=== PATIENT | male | born 1945 | race Caucasian/White ===

== ENCOUNTER → 2016-11-15 | Outpatient (CLI) | payer MEDICARE, OTHER ==
--- NOTE | 2016-11-15 13:51 | EKG REPORT ---
SEVERITY:- ABNORMAL ECG - SINUS RHYTHM ATRIAL PREMATURE COMPLEX RIGHT BUNDLE BRANCH BLOCK : Confirmed by: Kevin Betts 15-Nov-2016 13:50:50
[2016-11-15 14:09] LABS: ABSOLUTE BASOPHILS # (AUTO) 0.1 10^3/uL (0.0-0.2); ABSOLUTE EOSINOPHILS # (AUTO) 0.1 10^3/uL (0.0-0.6); ABSOLUTE LYMPHOCYTES (AUTO) 0.9 10^3/uL (0.5-4.7); ABSOLUTE MONOCYTES (AUTO) 0.4 10^3/uL (0.1-1.4); ABSOLUTE NEUT (AUTO) 5.7 10^3/uL (1.7-8.2); BASOPHILS % (AUTO) 0.8 % (0-2); EOSINOPHILS % (AUTO) 1.2 % (0-6); HEMATOCRIT 36.6 % (37.9-51.0); HEMOGLOBIN 12.3 g/dL (13.5-17.0); HGB HCT DIFFERENCE 0.3; LYMPHOCYTES % (AUTO) 12.9 % (13-45); MEAN CORPUSCULAR HEMOGLOBIN 29.6 pg (27.0-33.4); MEAN CORPUSCULAR HGB CONC 33.5 g/dL (32.0-36.0); MEAN CORPUSCULAR VOLUME 88 fl (80-97); MONOCYTES % (AUTO) 5.6 % (3-13); RED BLOOD COUNT 4.15 10^6/uL (4.35-5.55); RED CELL DISTRIBUTION WIDTH 13.9 % (11.5-14.0); SEGMENTED NEUTROPHILS % (AUTO) 79.5 % (42-78); WHITE BLOOD COUNT 7.2 10^3/uL (4.0-10.5)
[2016-11-15 14:16] LABS: APPEARANCE,URINE CLEAR; BILIRUBIN,URINE NEGATIVE (NEGATIVE); GLUCOSE, URINE NEGATIVE (NEGATIVE); KETONES,URINE NEGATIVE (NEGATIVE); LEUKOCYTE ESTERASE,URINE NEGATIVE (NEGATIVE); NITRITE,URINE NEGATIVE (NEGATIVE); PROTEIN,URINE NEGATIVE (NEGATIVE); URINE SPECIFIC GRAVITY 1.014; UROBILINOGEN,URINE NEGATIVE mg/dL (<2.0)
[2016-11-15 14:38] LABS: ANION GAP 10 (5-19); BLOOD UREA NITROGEN 18 mg/dL (7-20); CALCIUM 9.4 mg/dL (8.4-10.2); CARBON DIOXIDE 28 mmol/L (22-30); CHLORIDE 104 mmol/L (98-107); CREATININE RESULT 0.95 mg/dL (0.52-1.25); GLUCOSE 125 mg/dL (75-110); POTASSIUM 5.1 mmol/L (3.6-5.0); SODIUM 141.7 mmol/L (137-145)
--- NOTE | 2016-11-16 10:49 | EKG REPORT ---
SEVERITY:- ABNORMAL ECG - SINUS RHYTHM RIGHT BUNDLE BRANCH BLOCK : Confirmed on behalf of: Kevin Betts 16-Nov-2016 10:48:05
== END ==
LOC: OD 12:30
PROVIDERS: ATTEND Orthopaedic Surgery
DX: Z01.810 Encounter for preprocedural cardiovascular examination (principal); Z01.812 Encounter for preprocedural laboratory examination; Z01.818 Encounter for other preprocedural examination
CPT/HCPCS: 36415; 71020; 80048; 81001; 83036; 85025; 93005; 93010

== ENCOUNTER → 2017-01-02 | Outpatient (CLI) | payer MEDICARE, OTHER ==
[~2017-01-02] MED LIST: REGADENOSON INJ 0.4 MG/5 ML DISP.SYRIN IV ONE
--- NOTE | 2017-01-03 12:01 | RADIOLOGY REPORT ---
STRESS TEST REPORT [id number] ROOM#: DATE OF SERVICE: 01/02/2017 AGE: 71Y ORDER#: [id number] REFERRING MD: LORRAINE OSCAR M.D. INDICATION: For preop cardiac evaluation, right bundle branch block PROCEDURE PERFORMED REST/STRESS SINGLE ISOTOPE CARDIOLITE SPECT IMAGING WITH IV LEXISCAN STRESS AND GATED SPECT IMAGING CLINICAL HISTORY This is a 71-year-old male with no known coronary artery disease but has abnormal EKG showing right bundle branch block and left posterior vesicular block, with coronary risk factors of diabetes, hypercholesterolemia, use of tobacco, currently about to undergo left total knee replacement and needs cardiac clearance. PROCEDURE The patient received IV Lexiscan 0.4 mg infused over ten seconds. The resting heart rate was 61 bpm and increased to 93 bpm at end infusion. The resting BP was 151/67 and increased to 145/60 at end infusion. Patient had symptoms of flushing and some shortness of breath, but no chest pains. Resting 12 lead EKG showed normal sinus rhythm at 61 bpm, bifascicular block. At end infusion, no ST changes were seen. Myocardial perfusion imaging was performed at rest 60 minutes following injection of 12.5 mCi Cardiolite. Ten seconds after the IV Lexiscan injection, the patient was injected with 38.7 mCi Cardiolite and flushed. Gated post stress tomographic imaging was performed 60 minutes after stress. FINDINGS The overall quality of the study is good. The left ventricular cavity is noted to be normal in size on both the rest and stress studies. There is no evidence of abnormal transient ischemic dilatation of the left ventricle. The TID ratio was 0.97 and normal. SPECT images showed no evidence of IV Lexiscan induced reversible ischemia. No fixed perfusion defects. Gated SPECT imaging showed normal motion and contraction of all LV segments. The left ventricular ejection fraction was calculated to be 62%. IMPRESSION: MYOCARDIAL PERFUSION IMAGING IS NORMAL. THERE IS NO IV LEXISCAN INDUCED REVERSIBLE ISCHEMIA IN THE LEFT VENTRICLE. NO FIXED PERFUSION DEFECTS. OVERALL LEFT VENTRICULAR SYSTOLIC FUNCTION WAS NORMAL AT 62% EF WITH NO REGIONAL WALL MOTION ABNORMALITY SEEN. NO PRIOR STUDY FOR COMPARISON. THE PATIENT IS LOW RISK FOR PERIOPERATIVE MYOCARDIAL INFARCTION. INTERPRETING PHYSICIAN: LORRAINE OSCAR M.D. /: SEAMUS TT: 1140 ID: [id number] /: [id number] TD: 0851 JOB: [id number] cc:Marybeth POND > KADE
== END ==
LOC: RAD 06:25
PROVIDERS: ATTEND Internal Medicine Cardiovascular Disease
DX: R94.31 Abnormal electrocardiogram [ECG] [EKG] (principal)
CPT/HCPCS: 93017; 78452; A9500; J2785; Q9969

== ENCOUNTER 2017-03-01 05:19 | Inpatient (IN) | payer MEDICARE, OTHER ==
[2017-02-15 12:08] LABS: HEMOGLOBIN 11.2 g/dL (13.5-17.0); HGB HCT DIFFERENCE 0.6; MEAN CORPUSCULAR HGB CONC 33.9 g/dL (32.0-36.0); MEAN CORPUSCULAR VOLUME 89 fl (80-97); RED BLOOD COUNT 3.73 10^6/uL (4.35-5.55); RED CELL DISTRIBUTION WIDTH 14.6 % (11.5-14.0); WHITE BLOOD COUNT 7.6 10^3/uL (4.0-10.5)
[2017-02-15 12:18] LABS: APPEARANCE,URINE CLEAR; BILIRUBIN,URINE NEGATIVE (NEGATIVE); GLUCOSE, URINE NEGATIVE (NEGATIVE); KETONES,URINE NEGATIVE (NEGATIVE); LEUKOCYTE ESTERASE,URINE NEGATIVE (NEGATIVE); NITRITE,URINE NEGATIVE (NEGATIVE); PROTEIN,URINE NEGATIVE (NEGATIVE); URINE SPECIFIC GRAVITY 1.012; UROBILINOGEN,URINE NEGATIVE mg/dL (<2.0)
--- NOTE | 2017-02-15 12:18 | RADIOLOGY REPORT (SQ) ---
EXAM DESCRIPTION: CHEST PA/LATERAL COMPLETED DATE/TIME: 02/15/2017 12:08 pm REASON FOR STUDY: PRE OP COMPARISON: Two-view chest 11/15/2016 EXAM PARAMETERS: NUMBER OF VIEWS: two views TECHNIQUE: Digital Frontal and Lateral radiographic views of the chest acquired. RADIATION DOSE: NA LIMITATIONS: none FINDINGS: LUNGS AND PLEURA: Patchy airspace disease at the right lung base along the anterior edge r ight middle lobe, worrisome for early or developing pneumonia. Left lung clear. No pleural effusions. No pneumothorax. MEDIASTINUM AND HILAR STRUCTURES: No masses or contour abnormalities. HEART AND VASCULAR STRUCTURES: Heart normal size. No evidence for failure. BONES: No acute findings. HARDWARE: None in the chest. OTHER: No other significant finding. IMPRESSION: Patchy airspace disease in the anterior right lung base worrisome for right middle lobe pneumonia TECHNICAL DOCUMENTATION: JOB ID: [id number] [employer]- All Rights Reserved
[2017-02-15 12:38] LABS: ANION GAP 9 (5-19); BLOOD UREA NITROGEN 17 mg/dL (7-20); CALCIUM 9.3 mg/dL (8.4-10.2); CARBON DIOXIDE 27 mmol/L (22-30); CHLORIDE 103 mmol/L (98-107); CREATININE RESULT 0.87 mg/dL (0.52-1.25); GLUCOSE 178 mg/dL (75-110); POTASSIUM 4.8 mmol/L (3.6-5.0); SODIUM 139.2 mmol/L (137-145)
--- NOTE | 2017-02-15 13:23 | EKG REPORT ---
SEVERITY:- ABNORMAL ECG - SINUS RHYTHM RIGHT BUNDLE BRANCH BLOCK : Confirmed by: Kevin Betts 15-Feb-2017 13:22:41
[~2017-03-01 05:19] MED LIST changes: +CEFAZOLIN 2 GM/D5W RTU 2 GM/50 ML RTUPB IV PRN; +LACTATED RINGERS 1000 ML IV PRN; +LIDOCAINE 0.5% INJ-PF (5 MG/ML) 50 ML SDV SUBCUT PRN; -REGADENOSON INJ 0.4 MG/5 ML DISP.SYRIN IV ONE; +VANCOMYCIN HCL 1,500 MG in DEXTROSE 5%-WATER 250 ML IV PRN
[2017-03-01] MEDS ORDERED: ALBUTEROL SULFATE 0.083% NEB 2.5 MG/3 ML AMPUL NEB ONE (06:13)
[2017-03-01 06:31] LABS: POTASSIUM 4.3 mmol/L (3.6-5.0)
--- NOTE | 2017-03-01 06:47 | RADIOLOGY REPORT (SQ) ---
EXAM DESCRIPTION: CHEST SINGLE VIEW COMPLETED DATE/TIME: 03/01/2017 6:29 am REASON FOR STUDY: PREOP COMPARISON: 02/15/2017. EXAM PARAMETERS: NUMBER OF VIEWS: One view. TECHNIQUE: Single frontal radiographic view of the chest acquired. RADIATION DOSE: NA LIMITATIONS: None. FINDINGS: LUNGS AND PLEURA: Mild hyperinflation. Interval clearing of the right lung base. MEDIASTINUM AND HILAR STRUCTURES: No masses. Contour normal. HEART AND VASCULAR STRUCTURES: Mild enlargement of the cardiac silhouette. BONES: No acute findings. HARDWARE: None in the chest. OTHER: No other significant finding. IMPRESSION: No acute cardiopulmonary findings. TECHNICAL DOCUMENTATION: JOB ID: [id number]
[2017-03-01] MEDS ORDERED: THROMBIN (BOVINE) TOPICAL 20000 UNIT VIAL ONE (06:49)
[2017-03-01] MEDS ORDERED: THROMBIN (BOVINE) 5000 UNIT EPITAXIS KIT ONE (06:50)
[2017-03-01] MEDS ORDERED: BUPIVACAINE INJ/PF LIPOSOME/PF 266 MG/20 ML SDV ONE (06:50)
[2017-03-01] MEDS ORDERED: PROPOFOL INJ 200 MG/20 ML VIAL IV ONE (07:00)
[2017-03-01] MEDS ORDERED: MIDAZOLAM 2 MG/2 ML INJ ONE (07:00)
[2017-03-01] MEDS ORDERED: ACETAMINOPHEN 100 ML IV ONE (07:00)
[2017-03-01] MEDS ORDERED: IBUPROFEN INJ 800 MG/8 ML VIAL IV ONE (07:00)
[2017-03-01] MEDS ORDERED: HYDROMORPHONE HCL INJ/PF 2 MG/ML AMPULE ONE (07:01)
[2017-03-01] MEDS ORDERED: TRANEXAMIC ACID INJ/PF 1,000 MG/10 ML SDV IV ONE (07:35)
[2017-03-01] MEDS ORDERED: FENTANYL CITRATE INJ/PF 100 MCG/2 ML AMPUL ONE ×2 (08:23→11:17)
[2017-03-01] MEDS ORDERED: EPHEDRINE SULFATE INJ 50 MG/1 ML AMPULE ONE (08:23)
[2017-03-01] MEDS ORDERED: FENTANYL CITRATE INJ/PF 100 MCG/2 ML AMPUL IV PRN ×3 (09:34)
[2017-03-01] MEDS ORDERED: ONDANSETRON HCL INJ/PF 4 MG/2 ML SDV IV PRN ×2 (09:34→11:33)
[2017-03-01] MEDS ORDERED: LIDOCAINE 2% INJ-PF (20 MG/ML) 10 ML AMPUL ONE (10:25)
[2017-03-01] MEDS ORDERED: DEXAMETHASONE SOD PHOSPHATE INJ 4 MG/1 ML VIAL ONE (10:25)
[2017-03-01] MEDS ORDERED: METOCLOPRAMIDE HCL INJ/PF 10 MG/2 ML SDV ONE (10:25)
[2017-03-01] MEDS ORDERED: SUCCINYLCHOLINE CHLORIDE INJ 200 MG/10 ML VIAL ONE (10:25)
[2017-03-01] MEDS ORDERED: ONDANSETRON HCL INJ/PF 4 MG/2 ML SDV ONE (10:25)
--- NOTE | 2017-03-01 11:16 | Operative Report ---
Operative Report DATE OF SURGERY: 03/01/17 Operative Report: Left total knee arthroplasty PREOPERATIVE DIAGNOSIS: Left knee osteoarthritis POSTOPERATIVE DIAGNOSIS: Same OPERATION: Left total knee arthroplasty SURGEON: LIBORIO KLINE ANESTHESIA: GA TISSUE REMOVED OR ALTERED: Bone cuts COMPLICATIONS: None ESTIMATED BLOOD LOSS: 10 mL INTRAOPERATIVE FINDINGS: As above PROCEDURE: Patient was brought to the operating room where he was successfully intubated in a supine position. Patient received his preoperative antibiotics and the left lower extremity was prepped and draped in a normal sterile surgical fashion. Timeout was done identifying the left knee as the correct site. extremity had been held and the tourniquet was inflated at 300 mmHg. Leg was placed in the leg acuna and midline incision was done. Medial parapatellar arthrotomy was done to knee. The patella was everted and retracted laterally. After flexing the knee we resected the menisci as well as ACL and PCL. We proceeded to prepare the femur by doing first our distal cut. We checked the extension gap and then turned our attention to completing the femoral cuts using the 4-in-1 block Then we prepared and did an intramedullary guide and did our tibial cut. To do our remaining anterior, posterior, chamfer cuts. We sized it to be about a 6 and pin the epicondylar axis. We placed 6 block and there are cuts. The bone fragments were removed. And the guide was removed. We then proceeded to do our box cut making sure we were lateral enough. We used the osteotome and reciprocating saw to resect the bone. This also was removed and then we used a PCL guide to reflect the femur and proceeded to prepare the tibia. We measured tray to be 6 and we proceeded to prepare the tibia. We removed all excess pieces of spur and bone. We then placed the tibial trial spacer and felt like a 9 space was too tight as we proceeded then to resect another 2 mm off her tibia. We trialed again and was happy so we then proceeded to prepare and open the final components. While the components were being open then the cement was mixed we proceeded to use copious irrigation to clean the surface of the bone. The patella had intact cartilage with no defects of the left the patella alone. The tracking of the patella was perfect. Once the bone was irrigated and dried we proceeded to place a cement on the tibia and on the tibial component. Then placed a component and hammered component down and remove the excess cement. Same procedure was done for the femoral component. We placed a trial spacer to hold in place while of the components and cement cured. Once the cement had hardened we then used osteotome to remove excess cement. Traction of the patella continued to be excellent so we then proceeded to place the final spacer. We used a 9 and then trialed 11 and decided to use an 11 component. This was placed and secured and locked into the trial tibial tray. At this point irrigation was placed using past the renal clorhexidine wash followed with saline wash. We proceeded then to close the arthrotomy and use #1 Vicryl suture. We then used 0 Vicryl to close the subcutaneous tissue and 2-0 Vicryl for the dermis. [place] was used to close the skin. Acticoat was applied followed by 4 x 4 dressing, ABD pad and overwrapped with soft roll and Napoleon bandage. Tourniquet was let down at 106 minutes. Drapes were removed and the patient was extubated and sent to PACU in a stable condition
[2017-03-01] MEDS ORDERED: RINGERS SOLUTION,LACTATED 1,000 ML IV PRN (11:20)
[2017-03-01] MEDS ORDERED: OXYCODONE-ACETAMINOPHEN 5-325 MG TABLET PO PRN (11:30)
[2017-03-01] MEDS ORDERED: MORPHINE SULFATE 10 MG/ML INJ IV PRN (11:32)
--- NOTE | 2017-03-01 11:58 | RADIOLOGY REPORT (SQ) ---
EXAM DESCRIPTION: KNEE LEFT 2 VIEWS COMPLETED DATE/TIME: 03/01/2017 11:26 am REASON FOR STUDY: postop pacu M17.12 UNILATERAL PRIMARY OSTEOARTHRITIS, LEFT KNEE COMPARISON: Left knee MRI 07/23/2015 NUMBER OF VIEWS: Two views TECHNIQUE: Digital radiographic images of the left knee post-procedure. LIMITATIONS: None. FINDINGS: BONES: Diffuse soft tissue gas along the deep tissues left thigh. Knee joint effusion wit h air bubbles. DEVICE: Left total knee replacement with patellar resurfacing. Good alignment at the left knee joint . SOFT TISSUES: No worrisome findings. Expected postoperative soft tissue changes. IMPRESSION: SATISFACTORY POSTOPERATIVE LEFT KNEE. TECHNICAL DOCUMENTATION: JOB ID: [id number] [employer]- All Rights Reserved
[2017-03-01] MEDS ORDERED: ALBUTEROL SULFATE HFA (90 MCG/PUFF) 200 PUFF/8.5 GM MDI IH PRN (13:26)
[2017-03-01] MEDS ORDERED: MOMETASONE FUROATE 17 GM NS SCH (13:30)
[2017-03-01] MEDS ORDERED: TIOTROPIUM BROMIDE DPI 5 CAP/KIT (18 MCG/CAP) IH ONE (15:00)
[2017-03-01] MEDS ORDERED: CITALOPRAM HYDROBROMIDE 20 MG TABLET PO ONE (15:00)
[2017-03-01] MEDS: OXYCODONE-ACETAMINOPHEN 5-325 MG TABLET PO PRN ×2 (15:00→20:11)
[2017-03-01] MEDS: ALLOPURINOL 300 MG TABLET PO SCH (18:05)
[2017-03-01] MEDS: DOCUSATE SODIUM 100 MG CAPSULE PO SCH (18:05)
[2017-03-01] MEDS: ROPINIROLE HCL 1 MG TABLET PO SCH (18:05)
[2017-03-01] MEDS: EZETIMIBE 10 MG TABLET PO SCH (18:06)
[2017-03-01] MEDS: VANCOMYCIN HCL 1,500 MG in DEXTROSE 5%-WATER 250 ML IV SCH (18:06)
[2017-03-01] MEDS ORDERED: DEXTROSE 50%-WATER SYRINGE 12.5 GM/25 ML DOSE IV PRN (20:34)
[2017-03-01] MEDS ORDERED: GLUCAGON,HUMAN RECOMB 1 MG INJ IM PRN (20:34)
[2017-03-01] MEDS ORDERED: INSULIN LISPRO 100 UNIT/ML 3 ML VIAL SUBCUT PRN (20:34)
[2017-03-01] MEDS ORDERED: DEXTROSE 40% GEL 15 GM TUBE X 2 PO PRN (20:34)
[2017-03-01] MEDS ORDERED: DEXTROSE 40% GEL 15 GM TUBE PO PRN (20:34)
[2017-03-01] MEDS ORDERED: DEXTROSE 50%-WATER SYRINGE 25 GM/50 ML DOSE IV PRN (20:34)
[2017-03-01] MEDS: MONTELUKAST SODIUM 10 MG TABLET PO SCH (22:10)
[2017-03-01] MEDS: DONEPEZIL HCL 5 MG TABLET PO SCH (22:10)
[2017-03-01] MEDS: GABAPENTIN 300 MG CAPSULE PO SCH (22:10)
[2017-03-01] MEDS: RIVAROXABAN 10 MG TABLET PO SCH (22:10)
[2017-03-01] MEDS: FLUTICASONE/SALMETEROL DISKUS 250-50 MCG/DOSE IH SCH (22:12)
[2017-03-02] MEDS: ROPINIROLE HCL 1 MG TABLET PO SCH ×4 (00:25→17:15)
[2017-03-02] MEDS: OXYCODONE-ACETAMINOPHEN 5-325 MG TABLET PO PRN ×2 (04:17→21:32)
[2017-03-02] MEDS: VANCOMYCIN HCL 1,500 MG in DEXTROSE 5%-WATER 250 ML IV SCH ×2 (05:58→17:15)
[2017-03-02 06:11] LABS: HEMATOCRIT 28.8 % (37.9-51.0); HEMOGLOBIN 9.9 g/dL (13.5-17.0); HGB HCT DIFFERENCE 0.9; MEAN CORPUSCULAR HEMOGLOBIN 30.4 pg (27.0-33.4); MEAN CORPUSCULAR HGB CONC 34.4 g/dL (32.0-36.0); MEAN CORPUSCULAR VOLUME 88 fl (80-97); RED BLOOD COUNT 3.26 10^6/uL (4.35-5.55); RED CELL DISTRIBUTION WIDTH 15.1 % (11.5-14.0); WHITE BLOOD COUNT 12.8 10^3/uL (4.0-10.5)
[2017-03-02 06:30] LABS: ANION GAP 8 (5-19); BLOOD UREA NITROGEN 21 mg/dL (7-20); CALCIUM 8.6 mg/dL (8.4-10.2); CARBON DIOXIDE 26 mmol/L (22-30); CHLORIDE 101 mmol/L (98-107); CREATININE RESULT 0.93 mg/dL (0.52-1.25); GLUCOSE 233 mg/dL (75-110); SODIUM 135.3 mmol/L (137-145)
[2017-03-02 06:31] LABS: POTASSIUM 4.8 mmol/L (3.6-5.0)
[2017-03-02] MEDS ORDERED: (PENDING PHARMACY ID) (Sitagliptin Phos/Metformin Hcl [Janumet 50-500 Mg Tablet] 1 TAB) PO SCH (08:00)
[2017-03-02] MEDS: GLIMEPIRIDE 1 MG TABLET PO SCH (08:19)
[2017-03-02] MEDS: SITAGLIPTIN PHOSPHATE 50 MG TABLET PO SCH (08:20)
[2017-03-02] MEDS: METFORMIN HCL 500 MG TABLET PO SCH (08:20)
[2017-03-02] MEDS: TIOTROPIUM BROMIDE DPI 5 CAP/KIT (18 MCG/CAP) IH SCH (08:20)
[2017-03-02] MEDS ORDERED: METHOTREXATE SODIUM 2.5 MG TABLET PO SCH (10:00)
[2017-03-02] MEDS: GABAPENTIN 300 MG CAPSULE PO SCH ×2 (10:29→21:32)
[2017-03-02] MEDS: DOCUSATE SODIUM 100 MG CAPSULE PO SCH ×2 (10:29→17:15)
[2017-03-02] MEDS: CITALOPRAM HYDROBROMIDE 20 MG TABLET PO SCH (10:30)
[2017-03-02] MEDS: FLUTICASONE/SALMETEROL DISKUS 250-50 MCG/DOSE IH SCH ×2 (10:30→21:32)
[2017-03-02] MEDS: PREDNISONE 5 MG TABLET PO SCH (10:31)
[2017-03-02] MEDS: ALLOPURINOL 300 MG TABLET PO SCH (17:15)
[2017-03-02] MEDS: EZETIMIBE 10 MG TABLET PO SCH (17:15)
--- NOTE | 2017-03-02 19:04 | PDOC PROGRESS REPORT ---
Subjective Progress Note for:: 03/02/17 Subjective:: Patient ambulated 150 feet today. States the pain is adequately controlled. Patient plan to discharge tomorrow. Physical Exam Vital Signs: Temp Pulse Resp BP Pulse Ox 36.8 C 66 20 132/55 H 99 03/02/17 11:50 03/02/17 11:50 03/02/17 11:50 03/02/17 11:50 03/02/17 11:50 Intake & Output 03/01/17 03/02/17 03/03/17 06:59 06:59 06:59 Intake Total 0 6198 1820 Output Total 4480 700 Balance 0 1718 1120 General appearance: PRESENT: no acute distress Adult Front & Back Image: 1 - Dressing is dry clean and intact. Able to extend to about -10 and flex it to 90. Sensation is intact to light touch with good capillary refill. He does have soft cast. Results Laboratory Results: 03/02/17 05:54 03/02/17 05:54 03/02/17 03/02/17 05:54 05:54 WBC 12.8 H RBC 3.26 L Hgb 9.9 L Hct 28.8 L MCV 88 MCH 30.4 MCHC 34.4 RDW 15.1 H Plt Count 266 Sodium 135.3 L Potassium 4.8 Chloride 101 Carbon Dioxide 26 Anion Gap 8 BUN 21 H Creatinine 0.93 Est GFR ( Amer) > 60 Est GFR (Non-Af Amer) > 60 Glucose 233 H Calcium 8.6 Impressions: Chest X-Ray 03/01/17 00:00 IMPRESSION: No acute cardiopulmonary findings. Knee X-Ray 03/01/17 10:48 IMPRESSION: SATISFACTORY POSTOPERATIVE LEFT KNEE. Status: Image reviewed by me Assessment & Plan - Plan Summary Plan Summary: 72-year-old gentleman who is postop day 1 from left total knee arthroplasty. He is doing very well and will probably be discharged tomorrow with home health and home physical therapy. Patient continued to weight-bear as tolerated. Continue Xarelto. Continue Percocet.
[2017-03-02] MEDS: MONTELUKAST SODIUM 10 MG TABLET PO SCH (21:32)
[2017-03-02] MEDS: RIVAROXABAN 10 MG TABLET PO SCH (21:32)
[2017-03-02] MEDS: DONEPEZIL HCL 5 MG TABLET PO SCH (21:32)
[2017-03-03] MEDS: ROPINIROLE HCL 1 MG TABLET PO SCH ×2 (00:28→05:32)
[2017-03-03 06:24] LABS: HEMATOCRIT 29.1 % (37.9-51.0); HEMOGLOBIN 9.9 g/dL (13.5-17.0); HGB HCT DIFFERENCE 0.6; MEAN CORPUSCULAR HEMOGLOBIN 30.3 pg (27.0-33.4); MEAN CORPUSCULAR HGB CONC 33.9 g/dL (32.0-36.0); MEAN CORPUSCULAR VOLUME 89 fl (80-97); RED BLOOD COUNT 3.26 10^6/uL (4.35-5.55); RED CELL DISTRIBUTION WIDTH 15.2 % (11.5-14.0); WHITE BLOOD COUNT 8.5 10^3/uL (4.0-10.5)
[2017-03-03 06:37] LABS: ANION GAP 9 (5-19); BLOOD UREA NITROGEN 22 mg/dL (7-20); CALCIUM 8.8 mg/dL (8.4-10.2); CARBON DIOXIDE 29 mmol/L (22-30); CHLORIDE 101 mmol/L (98-107); CREATININE RESULT 0.89 mg/dL (0.52-1.25); GLUCOSE 144 mg/dL (75-110); SODIUM 138.5 mmol/L (137-145)
[2017-03-03] MEDS: DOCUSATE SODIUM 100 MG CAPSULE PO SCH (10:14)
[2017-03-03] MEDS: GLIMEPIRIDE 1 MG TABLET PO SCH (10:14)
[2017-03-03] MEDS: CITALOPRAM HYDROBROMIDE 20 MG TABLET PO SCH (10:15)
[2017-03-03] MEDS: METFORMIN HCL 500 MG TABLET PO SCH (10:16)
[2017-03-03] MEDS: PREDNISONE 5 MG TABLET PO SCH (10:16)
[2017-03-03] MEDS: SITAGLIPTIN PHOSPHATE 50 MG TABLET PO SCH (10:16)
[2017-03-03] MEDS: GABAPENTIN 300 MG CAPSULE PO SCH (10:17)
[2017-03-03] MEDS: FLUTICASONE/SALMETEROL DISKUS 250-50 MCG/DOSE IH SCH (10:18)
[2017-03-03] MEDS: TIOTROPIUM BROMIDE DPI 5 CAP/KIT (18 MCG/CAP) IH SCH (10:18)
--- NOTE | 2017-03-03 13:06 | PDOC DISCHARGE SUMMARY ---
General - Admit/Disc Date/PCP Admission Date/Primary Care Provider: 03/01/17 05:19 JENNIFER MCGRATH MD Discharge Date: 03/03/17 - Discharge Diagnosis (1) Total knee replacement status Is this a current diagnosis for this admission?: Yes (2) Primary osteoarthritis of left knee Is this a current diagnosis for this admission?: Yes - Additional Information Resuscitation Status: Full Code Home Medications: Allopurinol [Zyloprim 300 mg Tablet] 300 mg PO DAILY 03/01/17 Cholecalciferol (Vitamin D3) [Vitamin D3 2000 unit Tablet] 2,000 unit PO DAILY 03/01/17 Citalopram Hydrobromide [Celexa 40 mg Tablet] 40 mg PO DAILY 03/01/17 Cyanocobalamin (Vitamin B-12) [Vitamin B-12] 2,000 mcg PO DAILY 03/01/17 Donepezil HCl [Aricept] 10 mg PO DAILY 03/01/17 Ezetimibe [Zetia 10 mg Tablet] 10 mg PO DAILY 03/01/17 Fluticasone Propionate [Flonase Nasal [place] 50 Mcg/[place] 16 gm] 1 spray NASL DAILY 03/01/17 Fluticasone/Salmeterol [Advair 250-50 Diskus 28 dose] 1 inh IH Q12 03/01/17 Folic Acid [Folvite 1 mg Tablet] 1 mg PO DAILY 03/01/17 Gabapentin [Neurontin 300 mg Capsule] 300 mg PO Q12 03/01/17 Glimepiride [Amaryl] 2 mg PO DAILY 03/01/17 Meloxicam [Mobic 7.5 Mg Tablet] 7.5 mg PO BID 03/01/17 Methotrexate Sodium [Methotrexate] 20 mg PO WE@1000 03/01/17 Montelukast Sodium [Singulair 10 mg Tablet] 10 mg PO DAILY 03/01/17 Ropinirole HCl 1 mg PO Q6 03/01/17 Sitagliptin Phos/Metformin HCl [Janumet Xr 100-1,000 mg Tablet] 1 tab PO DAILY 03/01/17 Tiotropium [place] [Spiriva Handihaler 5 Cap/Kit (18 Mcg/Cap)] 1 cap IH DAILY Trazodone HCl [Desyrel 50 mg Tablet] 25 mg PO HSP PRN 03/01/17 History of Present Illness Patient complains of: Left knee pain with activities. Decreased range of motion. Affecting daily activities. History of Present Illness: MERE PEÑA is a 72 year old male who has been a patient of mine for last couple years developed osteoarthritis in the left knee. Conservative measures finally failed and the patient agreed to proceed with left total knee arthroplasty. Patient had the procedure done on 03/01/17. Hospital stay was uneventful. He is neurovascular intact. Medically stable therefore patient was discharged on 03/03/2017. Hospital Course Hospital Course: On 03/01/2017 patient underwent left total knee arthroplasty. No complications and no events. Pain was adequately controlled and patient participate with physical therapy. On postop day 1 who is neurovascular intact and walked 80 feet. On postop day 2 patient had already walked 150 feet. He already has a walker commode at home. He did not complain of shortness of breath paresthesias or increased pain. Dressing was changed today postop day 2 and incision is dry clean and intact. Patient is still neurovascular intact with soft cast. He will be discharged today to home with home health and home PT. I will see him back in 2 weeks in the office for staple removals. Prescription for Percocet was given. Physical Exam Vital Signs: Temp Pulse Resp BP Pulse Ox 36.4 C 87 15 126/49 H 97 03/03/17 12:47 03/03/17 12:47 03/03/17 12:47 03/03/17 12:47 03/03/17 12:47 Intake & Output 03/02/17 03/03/17 03/04/17 06:59 06:59 06:59 Intake Total 6135 2425 Output Total 4100 1500 Balance 1718 925 Weight 83.3 kg General appearance: PRESENT: no acute distress Head exam: PRESENT: atraumatic Eye exam: PRESENT: EOMI. ABSENT: conjunctival injection Respiratory exam: PRESENT: symmetrical, unlabored. ABSENT: accessory muscle use , tachypnea Pulses: PRESENT: normal dorsalis pedis pul Vascular exam: PRESENT: normal capillary refill GI/Abdominal exam: PRESENT: soft. ABSENT: organolmegaly Adult Front & Back Image: 1 - Left knee incision is dry clean and intact with no drainage. Dressing OpSite was applied at discharge. Patient range of motion is about -10 to about 90 of flexion. Neurovascular intact distally with soft cast. Results Laboratory Results: 03/03/17 05:40 03/03/17 05:40 03/03/17 03/03/17 05:40 05:40 WBC 8.5 RBC 3.26 L Hgb 9.9 L Hct 29.1 L MCV 89 MCH 30.3 MCHC 33.9 RDW 15.2 H Plt Count 247 Sodium 138.5 Potassium 5.0 Chloride 101 Carbon Dioxide 29 Anion Gap 9 BUN 22 H Creatinine 0.89 Est GFR ( Amer) > 60 Est GFR (Non-Af Amer) > 60 Glucose 144 H Calcium 8.8 Impressions: Chest X-Ray 03/01/17 00:00 IMPRESSION: No acute cardiopulmonary findings. Knee X-Ray 03/01/17 10:48 IMPRESSION: SATISFACTORY POSTOPERATIVE LEFT KNEE. Status: Image reviewed by me Plan Discharge Plan: 72-year-old gentleman postop day 2 from left total knee arthroplasty being discharged today to home. Prescriptions for Percocet, Xarelto were given. Patient will follow-up in 2 weeks in the office. Also be set up with home health and home PT. Patient artery has a commode and walker at home.
[2017-03-03 13:47] VITALS: BP 142/56
== END 2017-03-03 14:48 | disposition home health service (06) | DRG 470 ==
LOC: INOR 05:19 → 4S 12:40
PROVIDERS: ADMIT Orthopaedic Surgery; ATTEND Orthopaedic Surgery
PROC: 0SRD0J9 Replacement of Left Knee Joint with Synthetic Substitute, Cemented, Open Approach (ICD-10-PCS; principal; 2017-03-01 07:30)
DX: M17.12 Unilateral primary osteoarthritis, left knee (principal); E11.40 Type 2 diabetes mellitus with diabetic neuropathy, unspecified; J44.9 Chronic obstructive pulmonary disease, unspecified; Z96.649 Presence of unspecified artificial hip joint; J45.909 Unspecified asthma, uncomplicated; F41.9 Anxiety disorder, unspecified; F32.9 Major depressive disorder, single episode, unspecified; Z79.84 Long term (current) use of oral hypoglycemic drugs; Z88.0 Allergy status to penicillin; Z88.8 Allergy status to other drugs, medicaments and biological substances
CPT/HCPCS: 01402; 36415; 71010; 71020; 80048; 81001; 82947; 82962; 83036; 84132; 85027; 86850; 86900; 86901; 88304; 88311; 93005; 93010; 94640; C9290; G8978-GP; G8979-GP; J0131; J0330; J1100; J1170; J1741; J1815; J2250; J2270; J2405; J2704; J2765; J3010; J3370; J3490; J7060; J7512

== ENCOUNTER → 2017-04-02 | Outpatient (CLI) | payer MEDICARE, OTHER ==
--- NOTE | 2017-04-02 17:14 | RADIOLOGY REPORT (SQ) ---
EXAM DESCRIPTION: CT CHEST WITHOUT COMPLETED DATE/TIME: 04/02/2017 12:42 pm REASON FOR STUDY: SOLITARY PULMONARY NODULE (R91.1) R91.1 SOLITARY PULMONARY NODULE COMPARISON: Chest radiograph TECHNIQUE: CT scan performed of the chest without intravenous contrast. Images reviewed with lung, soft tissue and bone windows. Reconstructed coronal and sagittal MPR images reviewed. All images st ored on PACS. All CT scanners at this facility use dose modulation, iterative reconstruction, and/or weight based d osing when appropriate to reduce radiation dose to as low as reasonably achievable (ALARA). [facility]: Dose Right [facility]: CareDose [facility]: Dose Right [facility]: Teradose 4D [facility]: Activity Rocket RADIATION DOSE: Up-to-date CT equipment and radiation dose reduction techniques were employed. CTDIv ol: 9.2 mGy. DLP: 376 mGy-cm. mGy. LIMITATIONS: No technical limitations. FINDINGS: LUNGS AND PLEURA: No discrete pulmonary nodules. Scattered vague opacities. No effusion. HILAR AND MEDIASTINAL STRUCTURES: No identified masses or abnormal nodes. No obvious aneurysm. HEART AND VASCULAR STRUCTURES: No aneurysm. No pericardial effusion. UPPER ABDOMEN: No significant findings. Limited exam. THYROID AND OTHER SOFT TISSUES: No masses. No adenopathy. BONES: No significant finding. HARDWARE: None in the chest. OTHER: No other significant findings. IMPRESSION: NO SIGNIFICANT FINDING ON NON-CONTRASTED CHEST CT. No discrete pulmonary nodules. TECHNICAL DOCUMENTATION: JOB ID: [id number] Quality ID # [id number]: Final reports with documentation of one or more dose reduction techniques (e.g., Au tomated exposure control, adjustment of the mA and/or kV according to patient size, use of iterative reconstruction technique) 2010 [employer]- All Rights Reserved
== END ==
LOC: RAD 12:25
PROVIDERS: ATTEND Internal Medicine Critical Care Medicine
DX: R91.1 Solitary pulmonary nodule (principal)
CPT/HCPCS: 71250

== ENCOUNTER → 2017-05-15 | Outpatient (CLI) | payer MEDICARE, OTHER ==
[2017-05-15 10:13] LABS: ANION GAP 10 (5-19); BLOOD UREA NITROGEN 15 mg/dL (7-20); CALCIUM 9.2 mg/dL (8.4-10.2); CARBON DIOXIDE 28 mmol/L (22-30); CHLORIDE 105 mmol/L (98-107); CREATININE RESULT 1.08 mg/dL (0.52-1.25); GLUCOSE 142 mg/dL (75-110); POTASSIUM 5.5 mmol/L (3.6-5.0); SODIUM 142.9 mmol/L (137-145)
== END ==
LOC: OD 08:12
PROVIDERS: ATTEND Internal Medicine Cardiovascular Disease
DX: I34.9 Nonrheumatic mitral valve disorder, unspecified (principal); E11.9 Type 2 diabetes mellitus without complications; Z79.899 Other long term (current) drug therapy
CPT/HCPCS: 36415; 80048

== ENCOUNTER 2017-05-16 07:08 | Day surgery (SDC) | payer MEDICARE, OTHER ==
[2017-05-16] MEDS ORDERED: GLYCOPYRROLATE INJ 0.4 MG/2 ML VIAL ONE (07:32)
[2017-05-16] MEDS ORDERED: ONDANSETRON HCL INJ/PF 4 MG/2 ML SDV ONE (07:32)
[2017-05-16] MEDS ORDERED: LIDOCAINE 2% JELLY 30 ML TUBE ONE (07:32)
[2017-05-16] MEDS ORDERED: FENTANYL CITRATE INJ/PF 100 MCG/2 ML AMPUL ONE ×2 (07:33)
[2017-05-16] MEDS ORDERED: FLUMAZENIL INJ 0.5 MG/5 ML VIAL ONE (07:33)
[2017-05-16] MEDS ORDERED: NALOXONE HCL INJ/PF 0.4 MG/1 ML SDV ONE (07:33)
[2017-05-16] MEDS ORDERED: GLUCAGON,HUMAN RECOMB 1 MG INJ ONE (07:34)
[2017-05-16] MEDS ORDERED: EPINEPHRINE INJ 1 MG/10 ML DISP.SYRIN ONE (07:34)
[2017-05-16] MEDS: MIDAZOLAM 2 MG/2 ML INJ ONE ×2 (08:04→08:08)
[2017-05-16 09:51] VITALS: BP 125/60
--- NOTE | 2017-05-16 12:00 | OPERATIVE REPORT E ---
Operative Report NAME: MERE PEÑA : 1945 AGE: 72Y DATE OF SURGERY: 05/16/2017 ROOM: PREOPERATIVE DIAGNOSES: 1. Colon screening. 2. History of polyps. 3. Blood in the stool. POSTOPERATIVE DIAGNOSES: 1. No polyps. 2. No bleeding. 3. External hemorrhoids, mild. 4. Sigmoid descending colon diverticulosis. No polyps were seen. Moderate amount of solid stool because of multiplicity of diverticulosis. The prep was adequate, but not optimal. Recommendation followup colonoscopy 2 years. PROCEDURE: Colonoscopy. SURGEON: MIRANDA TENA M.D. TISSUE REMOVED OR ALTERED: None. ANESTHESIA: Versed 3, fentanyl 100. DESCRIPTION OF PROCEDURE: Rectal exam: External hemorrhoids. Sigmoid descending colon diverticulosis. Transverse colon normal. Ascending colon normal. Cecum normal. Moderate amount of solid stool in the cecum. Scope withdrawn from cecum, ascending, transverse, descending, sigmoid all the way to the rectum. CONCLUSION: External hemorrhoids. Sigmoid descending colon diverticulosis. No polyps. PLAN: Continue all medication. Consider followup colonoscopy 2 years. DICTATING PHYSICIAN: MIRANDA TENA M.D. [id number] PHY#: [id number] ID: [id number] JOB#: [id number] ACCT: [id number] cc:[facility] MRIANDA DOS SANTOS M.D. >
--- NOTE | 2017-05-16 12:02 | DISCHARGE SUMMARY E ---
Discharge Summary NAME: MERE PEÑA : 1945 AGE: 72Y ADMITTED: 05/16/2017 DISCHARGED: 05/16/2017 PROCEDURE: Colonoscopy. FINAL DIAGNOSES: 1. Sigmoid descending colon diverticulosis. 2. External hemorrhoids. HISTORY: A 72-year-old male presented with history of polyps, blood in the stool, diverticulosis. Underwent colonoscopy today. It shows no bleeding, external hemorrhoids, and sigmoid descending colon diverticulosis. PLAN: Resume all meds. Consider followup colonoscopy 2 years. DICTATING PHYSICIAN: MIRANDA TENA M.D. [id number] PHY#: [id number] ID: [id number] JOB#: [id number] ACCT: [id number] cc:[facility] MIRANDA DOS SANTOS M.D. >
== END 2017-05-16 09:30 | disposition home or self-care (01) ==
LOC: END 07:08
PROVIDERS: ATTEND Specialist
PROC: 0DJD8ZZ Inspection of Lower Intestinal Tract, Via Natural or Artificial Opening Endoscopic (ICD-10-PCS; principal; 2017-05-16 08:00)
DX: K92.1 Melena (principal); K57.30 Diverticulosis of large intestine without perforation or abscess without bleeding; K64.4 Residual hemorrhoidal skin tags
CPT/HCPCS: 45378; 82962; J2250; J3010; J1610; J2405; J0171; J2310; J3490

== ENCOUNTER → 2017-06-05 | Outpatient (CLI) | payer MEDICARE, OTHER ==
[2017-06-05 12:22] LABS: ANION GAP 11 (5-19); BLOOD UREA NITROGEN 18 mg/dL (7-20); CALCIUM 9.7 mg/dL (8.4-10.2); CARBON DIOXIDE 27 mmol/L (22-30); CHLORIDE 103 mmol/L (98-107); CREATININE RESULT 1.02 mg/dL (0.52-1.25); GLUCOSE 120 mg/dL (75-110); POTASSIUM 4.9 mmol/L (3.6-5.0); SODIUM 141.1 mmol/L (137-145)
== END ==
LOC: OD 11:32
PROVIDERS: ATTEND Internal Medicine Cardiovascular Disease
DX: E87.5 Hyperkalemia (principal); Z79.899 Other long term (current) drug therapy
CPT/HCPCS: 36415; 80048

== ENCOUNTER → 2017-06-25 | Outpatient (CLI) | payer MEDICARE, OTHER ==
[2017-06-25 09:17] LABS: ANION GAP 10 (5-19); BLOOD UREA NITROGEN 17 mg/dL (7-20); CALCIUM 9.9 mg/dL (8.4-10.2); CARBON DIOXIDE 27 mmol/L (22-30); CHLORIDE 103 mmol/L (98-107); CREATININE RESULT 0.98 mg/dL (0.52-1.25); GLUCOSE 162 mg/dL (75-110); POTASSIUM 5.3 mmol/L (3.6-5.0); SODIUM 139.9 mmol/L (137-145)
== END ==
LOC: OD 07:55
PROVIDERS: ATTEND Internal Medicine Cardiovascular Disease
DX: E87.5 Hyperkalemia (principal)
CPT/HCPCS: 36415; 80048

== ENCOUNTER → 2017-07-20 | Outpatient (CLI) | payer MEDICARE, OTHER ==
--- NOTE | 2017-07-20 13:59 | RADIOLOGY REPORT (SQ) ---
EXAM DESCRIPTION: L SPINE WHOLE COMPLETED DATE/TIME: 07/20/2017 11:03 am REASON FOR STUDY: SPINAL STENOSIS, LUMBAR REGION WITH NEUROGENIC CLAUDICATION (M48.062) M48.062 SPI NAL STENOSIS, LUMBAR REGION WITH NEUROGENIC SHAHANA COMPARISON: None. NUMBER OF VIEWS: Five views including obliques. TECHNIQUE: AP, lateral, oblique, and sacral radiographic images acquired of the lumbar spine. LIMITATIONS: None. FINDINGS: MINERALIZATION: Normal. SEGMENTATION: Normal. No transitional anatomy. ALIGNMENT: Grade 1 spondylolisthesis L3-4. VERTEBRAE: Maintained height. No fracture or worrisome bone lesion. DISCS: Multilevel disc space narrowing with osteophytes. POSTERIOR ELEMENTS: Pedicles and facets are intact. No pars defect or posterior arch defects. Facet arthropathy is present. HARDWARE: None in the spine. PARASPINAL SOFT TISSUES: Normal. PELVIS: Intact as visualized. No fractures or worrisome bone lesions. SI joints intact. OTHER: No other significant finding. IMPRESSION: Spondylosis. Spondylolisthesis L3-4. TECHNICAL DOCUMENTATION: JOB ID: [id number]- All Rights Reserved
== END ==
LOC: RAD 10:36
PROVIDERS: ATTEND Physician Assistant
DX: M48.062 Spinal stenosis, lumbar region with neurogenic claudication (principal); M47.896 Other spondylosis, lumbar region
CPT/HCPCS: 72110

== ENCOUNTER → 2017-07-25 | Outpatient (CLI) | payer MEDICARE, OTHER ==
--- NOTE | 2017-07-25 08:22 | RADIOLOGY REPORT (SQ) ---
EXAM DESCRIPTION: MRI LUMBAR SPINE WITHOUT COMPLETED DATE/TIME: 07/25/2017 7:43 am REASON FOR STUDY: SPINAL STENOSIS, LUMBAR REGION WITH NEUROGENIC CLAUDICATION(M48.062) M48.062 SPIN AL STENOSIS, LUMBAR REGION WITH NEUROGENIC SHAHANA M51.36 OTHER INTERVERTEBRAL DISC DEGENERATION, LUMB AR REGION M43.06 SPONDYLOLYSIS, LUMBAR REGION COMPARISON: None. TECHNIQUE: Sagittal and Axial imaging includes T1, T2, STIR and gradient echo sequences. Coronal T2/ HASTE imaging. LIMITATIONS: None. FINDINGS: VISUALIZED UPPER ABDOMEN: Limited evaluation. No acute or suspicious findings suggested. SEGMENTATION: No transitional anatomy. The lowest well-developed disc space is labeled L5-S1. ALIGNMENT: Minimal grade 1 anterolisthesis of L3 over L4. Mild anterolisthesis of L4 over L5. VERTEBRAE: Intact. BONE MARROW: Normal. No marrow replacement or reactive changes. DISC SIGNAL: Diffuse decreased T2 weighted intervertebral disc signal. Disc space loss of height at L4-5 POSTERIOR ELEMENTS: Generally intact. No pars defect evident. HARDWARE: None in the spine. CORD AND CONUS: Normal in size and signal intensity. Conus at the L1-2 level. SOFT TISSUES: No aortic aneurysm seen. No bulky retroperitoneal adenopathy or mass. No paraspinal mas s or fluid. T11-12: Mild bilateral facet hypertrophy. No central or foraminal stenosis. T12-L1: Unremarkable L1-L2: Moderate bilateral facet hypertrophy. No central or foraminal encroachment L2-L3: Borderline central canal narrowing results from broad diffuse posterior disc bulge and moderat e bilateral facet and ligament hypertrophy. Minimal bilateral for inferior foraminal narrowing is pr esent without exiting L2 nerve root impingement L3-L4: High-grade central canal stenosis results from broad diffuse posterior disc bulge and very bul ky bilateral facet and ligament hypertrophy. Effacement of the CSF around the lumbar nerve roots bes t shown on axial T2 image 19. There is moderate bilateral foraminal narrowing without exiting L3 ner ve root impingement. L4-L5: High-grade central canal stenosis results from broad diffuse posterior disc bulge and bony spu rring and massive bilateral facet and ligament hypertrophy. Best shown on axial T2 image 25, with ef facement of the CSF around the lumbar nerve roots. Mild right, moderate left foraminal narrowing wit hout definite exiting L4 nerve root impingement. L5-S1: Mild posterior disc bulge, mild facet and ligament hypertrophy. No central or foraminal steno sis. SACRUM: Visualized upper sacrum intact. OTHER: No other significant findings. IMPRESSION: High-grade central canal stenosis at L3-4 and L4-5 TECHNICAL DOCUMENTATION: JOB ID: [id number] [employer]- All Rights Reserved
== END ==
LOC: RAD 06:59
PROVIDERS: ATTEND Physician Assistant
DX: M48.062 Spinal stenosis, lumbar region with neurogenic claudication (principal); M51.36 Other intervertebral disc degeneration, lumbar region; M43.06 Spondylolysis, lumbar region
CPT/HCPCS: 72148

== ENCOUNTER → 2017-08-08 | Outpatient (CLI) | payer MEDICARE, OTHER ==
[2017-08-08 09:28] LABS: ANION GAP 7 (5-19); BLOOD UREA NITROGEN 16 mg/dL (7-20); CALCIUM 9.4 mg/dL (8.4-10.2); CARBON DIOXIDE 29 mmol/L (22-30); CHLORIDE 106 mmol/L (98-107); GLUCOSE 108 mg/dL (75-110); POTASSIUM 4.7 mmol/L (3.6-5.0); SODIUM 142.3 mmol/L (137-145)
== END ==
LOC: OD 08:21
PROVIDERS: ATTEND Internal Medicine Cardiovascular Disease
DX: E87.5 Hyperkalemia (principal)
CPT/HCPCS: 36415; 80048

== ENCOUNTER 2018-01-24 07:03 | Day surgery (SDC) | payer MEDICARE, OTHER ==
--- NOTE | 2018-01-21 09:54 | RADIOLOGY REPORT (SQ) ---
EXAM DESCRIPTION: CHEST PA/LATERAL COMPLETED DATE/TIME: 01/21/2018 9:43 am REASON FOR STUDY: PRE-OP COMPARISON: CT chest 04/02/2017 Chest films 03/01/2017, 02/15/2017, 11/15/2016 EXAM PARAMETERS: NUMBER OF VIEWS: two views TECHNIQUE: Digital Frontal and Lateral radiographic views of the chest acquired. RADIATION DOSE: NA LIMITATIONS: none FINDINGS: LUNGS AND PLEURA: No opacities, masses or pneumothorax. No pleural effusion. MEDIASTINUM AND HILAR STRUCTURES: No masses or contour abnormalities. HEART AND VASCULAR STRUCTURES: Heart normal size. No evidence for failure. BONES: No acute findings. HARDWARE: None in the chest. OTHER: No other significant finding. IMPRESSION: NO SIGNIFICANT RADIOGRAPHIC FINDING IN THE CHEST. TECHNICAL DOCUMENTATION: JOB ID: [id number] [employer]- All Rights Reserved Reading location - IP/workstation name: [email or web address]
[2018-01-21 10:41] LABS: APPEARANCE,URINE CLEAR; BILIRUBIN,URINE NEGATIVE (NEGATIVE); COLOR,URINE YELLOW; GLUCOSE, URINE 150 mg/dL (NEGATIVE); KETONES,URINE NEGATIVE (NEGATIVE); LEUKOCYTE ESTERASE,URINE NEGATIVE (NEGATIVE); NITRITE,URINE NEGATIVE (NEGATIVE); PROTEIN,URINE NEGATIVE (NEGATIVE); UROBILINOGEN,URINE NEGATIVE mg/dL (<2.0)
[2018-01-21 11:47] LABS: HEMATOCRIT 35.1 % (37.9-51.0); HEMOGLOBIN 11.8 g/dL (13.5-17.0); MEAN CORPUSCULAR HEMOGLOBIN 29.9 pg (27.0-33.4); MEAN CORPUSCULAR HGB CONC 33.6 g/dL (32.0-36.0); MEAN CORPUSCULAR VOLUME 89 fl (80-97); PLATELET COUNT 307 10^3/uL (150-450); RED BLOOD COUNT 3.95 10^6/uL (4.35-5.55); RED CELL DISTRIBUTION WIDTH 15.2 % (11.5-14.0); WHITE BLOOD COUNT 6.5 10^3/uL (4.0-10.5)
[2018-01-21 12:13] LABS: ANION GAP 12 (5-19); BLOOD UREA NITROGEN 15 mg/dL (7-20); CALCIUM 9.1 mg/dL (8.4-10.2); CARBON DIOXIDE 28 mmol/L (22-30); CHLORIDE 103 mmol/L (98-107); GLUCOSE 155 mg/dL (75-110); POTASSIUM 4.5 mmol/L (3.6-5.0)
--- NOTE | 2018-01-21 19:24 | EKG REPORT ---
SEVERITY:- ABNORMAL ECG - SINUS RHYTHM RIGHT BUNDLE BRANCH BLOCK : Confirmed by: Kevin Betts 21-Jan-2018 19:22:51
[~2018-01-24 07:03] MED LIST changes: +ALBUTEROL SULFATE 0.083% NEB 2.5 MG/3 ML AMPUL NEB PRN; -CEFAZOLIN 2 GM/D5W RTU 2 GM/50 ML RTUPB IV PRN; +CLINDAMYCIN 600 MG/D5W RTU 600 MG/50 ML RTUPB IV PRN; -VANCOMYCIN HCL 1,500 MG in DEXTROSE 5%-WATER 250 ML IV PRN
[2018-01-24] MEDS ORDERED: BUPIVACAINE HCL 0.5 % INJ/PF 30 ML SDV ONE (07:13)
[2018-01-24] MEDS ORDERED: ALBUTEROL SULFATE 0.083% NEB 2.5 MG/3 ML AMPUL NEB ONE (07:43)
[2018-01-24] MEDS ORDERED: MIDAZOLAM 2 MG/2 ML INJ ONE (08:56)
[2018-01-24] MEDS ORDERED: LIDOCAINE 2% INJ-PF (20 MG/ML) 10 ML AMPUL ONE (08:56)
[2018-01-24] MEDS ORDERED: DEXAMETHASONE SOD PHOSPHATE INJ 4 MG/1 ML VIAL ONE (08:56)
[2018-01-24] MEDS ORDERED: FENTANYL CITRATE INJ/PF 250 MCG/5 ML AMPULE ONE (08:56)
[2018-01-24] MEDS ORDERED: ONDANSETRON HCL INJ/PF 4 MG/2 ML SDV ONE (08:57)
[2018-01-24] MEDS ORDERED: ACETAMINOPHEN 1,000 MG/100 ML RTUPB IV ONE (08:57)
[2018-01-24] MEDS ORDERED: PROPOFOL INJ 200 MG/20 ML VIAL IV ONE (08:57)
[2018-01-24] MEDS ORDERED: EPHEDRINE SULFATE INJ 50 MG/1 ML AMPULE ONE (09:26)
[2018-01-24] MEDS ORDERED: OXYCODONE-ACETAMINOPHEN 5-325 MG TABLET PO PRN ×4 (09:56→10:31)
[2018-01-24] MEDS ORDERED: MORPHINE SULFATE 10 MG/ML INJ IV PRN (09:56)
[2018-01-24] MEDS ORDERED: FENTANYL CITRATE INJ/PF 100 MCG/2 ML AMPUL IV PRN ×3 (09:56)
[2018-01-24] MEDS ORDERED: ONDANSETRON HCL INJ/PF 4 MG/2 ML SDV IV PRN (09:56)
[2018-01-24] MEDS ORDERED: MEPERIDINE HCL/PF INJ 25 MG/1 ML DISP.SYRIN IV PRN (09:56)
[2018-01-24] MEDS ORDERED: DIPHENHYDRAMINE HCL 50 MG/ML VIAL IV PRN (09:56)
[2018-01-24] MEDS ORDERED: PROMETHAZINE HCL INJ 25 MG/1 ML VIAL IV PRN ×2 (09:56)
--- NOTE | 2018-01-24 10:24 | Operative Report ---
Operative Report DATE OF SURGERY: 01/24/18 PREOPERATIVE DIAGNOSIS: Right knee medial meniscus tear and mild osteoarthritis POSTOPERATIVE DIAGNOSIS: Same OPERATION: Right knee arthroscopy with partial medial meniscectomy and chondroplasty of all 3 compartments SURGEON: LIBORIO KLINE ANESTHESIA: GA TISSUE REMOVED OR ALTERED: Meniscal shavings COMPLICATIONS: None ESTIMATED BLOOD LOSS: Less than 10 mL INTRAOPERATIVE FINDINGS: As above PROCEDURE: Patient was brought to the operating room and successfully induced and intubated in a the supine position. Once the tube was secured the right lower extremity thigh tourniquet was applied and the left lower extremity was prepped and draped in a normal surgical fashion. Timeout was done identifying the left knee has a correct site. The extremity was held elevated for a couple minutes and then tourniquet was inflated at 300 mmHg 0.5% of Marcaine was injected into the anticipated portal sites. 11 blade was used to establish the anterolateral portal. Scope was introduced and the capsule was distended with sterile saline solution. Under direct visualization the anteromedial portal sites was established first by applying a spinal needle and then established with the 11 blade. Probe was introduced and a diagnostic scope was done. I distended the capsule with sterile saline solution and visualize the patellofemoral compartment which had grade 2 changes on the patella and grade 2 and 3 changes in the trochlear groove. I then bent the knee in 90 and placed valgus stress and expose the medial compartment. Patient had degenerative tearing of the mid body and posterior horn. I proceeded to then use meniscal biters and 4.0 mm shaver to do resection of two thirds of the meniscus. I also then proceeded to use a shaver to do chondroplasty medial femoral condyle had grade 3 changes diffusely and grade 2 and a focal grade 4 on the medial tibial plateau and grade 2 and 3 changes of the rest of the tibial plateau. I then looked at the notch and yellow showing to be intact. I placed the leg in a [id number] exposing the lateral compartment that showed a intact lateral meniscus and some grade 2 changes of the lateral femoral condyle which I then also proceeded to do chondroplasty with my shaver. I returned to the patellofemoral compartment and completed my chondroplasty of the patella and trochlear groove to complete chondroplasty of all 3 compartments. Before and after pictures were taken of the meniscus tear and resection. Fluid was removed from the knee and the 2 portal sites were closed with 3-0 nylon. I applied Xeroform 4 x 4 dressing and wrapped it with a soft roll followed by an Napoleon bandage. Tourniquet was let down at 30 minutes and the drapes were removed. Patient was then extubated and sent to PACU in stable condition
--- NOTE | 2018-01-24 10:31 | Discharge Summary ---
Discharge Summary (SDC) - Discharge Final Diagnosis: Right knee arthroscopic partial medial meniscectomy and chondroplasty Date of Surgery: 01/24/18 Discharge Date: 01/24/18 Condition: Good Treatment or Instructions: Patient instructed to follow up in 10-14 days. Patient instructed to keep dressing dry clean and intact for 3 days and then allowed to remove. At that point patient can shower and apply Band-Aids as needed. Patient can weight-bear as tolerated and do range of motion exercises as tolerated. Crutches for support and safety. Can wean crutches once stable on his feet. Patient instructed to call the office if patient develops fevers chills redness and drainage from the surgical sites. Prescriptions: Oxycodone HCl/Acetaminophen [Percocet 5-325 mg Tablet] 1 - 2 tab PO ASDIR PRN # 25 tablet PRN Reason: Referrals: JENNIFER MCGRATH MD [Primary Care Provider] - Discharge Diet: As Tolerated Respiratory Treatments at Home: Deep Breathing/Coughing Discharge Activity: No Driving - While taking narcotics, No Lifting/Push/Pulling Home Care Assistance: None Needed Adaptive Devices on Discharge: Axillary Crutches Report the Following to Your Physician Immediately: Shortness of Breath, Vomiting, Increase in Pain, Fever over 101 Degrees, Unusual Bleeding, Redness, Swelling, Warmth, Increased Soreness, Drainage-Yellow, Drainage-Lyn, Drainage- Green, Drainage-Foul Smelling
[2018-01-24 11:50] VITALS: BP 143/65
[2018-01-24] MEDS ORDERED: SUCCINYLCHOLINE CHLORIDE INJ 200 MG/10 ML VIAL ONE (13:23)
== END 2018-01-24 12:00 | disposition home or self-care (01) ==
LOC: OROUT 07:03
PROVIDERS: ATTEND Orthopaedic Surgery
DX: S83.221A Peripheral tear of medial meniscus, current injury, right knee, initial encounter (principal); X58.XXXA Exposure to other specified factors, initial encounter; E11.9 Type 2 diabetes mellitus without complications; J44.9 Chronic obstructive pulmonary disease, unspecified; M17.11 Unilateral primary osteoarthritis, right knee; G62.9 Polyneuropathy, unspecified; I10 Essential (primary) hypertension; M19.90 Unspecified osteoarthritis, unspecified site; Z88.0 Allergy status to penicillin; Z88.8 Allergy status to other drugs, medicaments and biological substances; Z79.82 Long term (current) use of aspirin; Z79.51 Long term (current) use of inhaled steroids; Z79.899 Other long term (current) drug therapy; Z79.84 Long term (current) use of oral hypoglycemic drugs; Z87.891 Personal history of nicotine dependence; Z88.1 Allergy status to other antibiotic agents; Z85.46 Personal history of malignant neoplasm of prostate; Z01.818 Encounter for other preprocedural examination
CPT/HCPCS: 93005; 36415 ×2; 82962; 84132; 85027; 80048; 81001; 83036; 71046; 93010; 94640; 29881; J2250; J3490 ×2; J1100; J3010; J0330; J2405; J2704; A9270; J0131; 1400

== ENCOUNTER → 2018-05-28 | Outpatient (CLI) | payer MEDICARE, OTHER ==
--- NOTE | 2018-05-28 16:59 | RADIOLOGY REPORT (SQ) ---
EXAM DESCRIPTION: SMALL BOWEL SERIES COMPLETED DATE/TIME: 05/28/2018 10:28 am REASON FOR STUDY: ANEMIA (D64.9) D64.9 ANEMIA, UNSPECIFIED COMPARISON: None. FLUOROSCOPY TIME: 8 seconds 5 fluoroscopic images, 7 KUB images saved to PACS. LIMITATIONS: None. PROCEDURE: Initial district scout executive image of abdomen acquired, followed by administration of oral contrast. Se rial radiographic images acquired. Fluoroscopic images recorded of the terminal ileum and other prince cated areas. All images stored on PACS. 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 No abnormal calcifications. Old L4 laminectomy and right hip replacement. STOMACH: Gastroesophageal reflux throughout the study. Normal distention without gross mucosal abnor mality. DUODENUM: Normal mucosal pattern with adequate distention. No displacement or obstruction. JEJUNUM: Normal mucosal pattern. No dilatation, segmentation, strictures or masses. ILEUM: Normal mucosal pattern. No dilatation, segmentation, strictures or masses. TERMINAL ILEUM AND ILEO-CECAL VALVE: Normal mucosal pattern without "cobble-stoning" or stricture. N ormal compression. PROXIMAL COLON: Incompletely imaged. No abnormality. OTHER: No other significant finding. IMPRESSION: NORMAL SMALL BOWEL EXAM. COMMENT: Quality ID [id number]: Final reports for procedures using fluoroscopy that document radiation exp osure indices, or exposure time and number of fluorographic images (if radiation exposure indices are not available) TECHNICAL DOCUMENTATION: JOB ID: [id number] [employer]- All Rights Reserved Reading location - IP/workstation name: [email or web address]
== END ==
LOC: RAD 08:33
PROVIDERS: ATTEND Internal Medicine Gastroenterology
DX: D64.9 Anemia, unspecified (principal)
CPT/HCPCS: 74250

== ENCOUNTER → 2018-06-19 | Outpatient (CLI) | payer MEDICARE ==
--- NOTE | 2018-06-21 08:55 | XCELERA REPORT ---
[address] [address] Lower Extremity Arterial Evaluation Name: MERE PEÑA Age: 73 yrs Gender: Male : 1945 Patient Status: Outpatient Patient Location: Study Date: 06/19/2018 11:13 AM Procedure: A color flow and duplex scan of the lower extremity arteries was performed bilaterally with velocity and waveform anaylsis. 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 Except for short segment of 2 x velocity in the mid Femoral. Ankle Brachial index 1.25. PPG's Monophasic mildly dampened waveforms. Left Side Arterial Evaluation Normal velocity and triphasic waveforms noted from the Common Femoral artery to the Posterior Tibial . Biphasic with reduced velocity in the Anterior and Dorsalis Pedis arteries. Flow also retrograde in the Dorsalis Pedis. Ankle Brachial index 1.33 in the Dorsalis Pedis. Non compressible Posterior tibial. PPG's Monophasic dampened waveforms. Interpretation Summary Unusually complex findings, somewhat discordant. Normal on the right, except for suggestion of short segment high grade stenosis in the Femoral artery and abnormal PPG's. Normal CATALINA's. Mildly abnormal hemodynamic changes on the left. Abnormal retrograde flow in the Dorsalis Pedis and Arteriosclerosis in the Postero Tibial, normal CATALINA. Abnormal PPG's. : FAWN QUEEN > Shaun Gross
== END ==
LOC: SP 10:41
PROVIDERS: ATTEND Podiatrist Foot Surgery
DX: I73.9 Peripheral vascular disease, unspecified (principal); E11.59 Type 2 diabetes mellitus with other circulatory complications
CPT/HCPCS: 93922; 93925

== ENCOUNTER → 2018-07-26 | Outpatient (CLI) | payer MEDICARE, OTHER ==
[2018-07-26 07:45] LABS: ALANINE AMINOTRANSFERASE 27 U/L (21-72); ALBUMIN 4.1 g/dL (3.5-5.0); ALKALINE PHOSPHATASE 132 U/L (38-126); ANION GAP 6 (5-19); ASPARTATE AMINO TRANSFERASE 22 U/L (17-59); BILIRUBIN,DIRECT 0.1 mg/dL (0.0-0.4); BILIRUBIN,TOTAL 0.5 mg/dL (0.2-1.3); BLOOD UREA NITROGEN 24 mg/dL (7-20); CALCIUM 9.1 mg/dL (8.4-10.2); CARBON DIOXIDE 28 mmol/L (22-30); CHLORIDE 106 mmol/L (98-107); CHOLESTEROL 172.15 mg/dL (0-200); GLUCOSE 91 mg/dL (75-110); POTASSIUM 4.2 mmol/L (3.6-5.0); SODIUM 140.3 mmol/L (137-145); TOTAL PROTEIN 6.6 g/dL (6.3-8.2); TRIGLYCERIDES 94 mg/dL (<150)
[2018-07-26 07:56] LABS: DIRECT LDL 109 mg/dL (<100)
== END ==
LOC: LAB 07:10
PROVIDERS: ATTEND Internal Medicine Cardiovascular Disease
DX: E78.00 Pure hypercholesterolemia, unspecified (principal); R03.0 Elevated blood-pressure reading, without diagnosis of hypertension; Z79.899 Other long term (current) drug therapy
CPT/HCPCS: 36415; 80048; 80061; 80076

== ENCOUNTER → 2018-10-29 | Outpatient (CLI) | payer MEDICARE, OTHER ==
--- NOTE | 2018-10-29 12:15 | EKG REPORT ---
SEVERITY:- ABNORMAL ECG - SINUS RHYTHM RBBB AND LPFB : Confirmed by: Zachery Diallo MD 29-Oct-2018 12:15:30
--- NOTE | 2018-10-29 12:29 | RADIOLOGY REPORT (SQ) ---
EXAM DESCRIPTION: CHEST PA/LATERAL COMPLETED DATE/TIME: 10/29/2018 12:21 pm REASON FOR STUDY: PRE-OP COMPARISON: Two-view chest 07/29/2015 EXAM PARAMETERS: NUMBER OF VIEWS: two views TECHNIQUE: Digital Frontal and Lateral radiographic views of the chest acquired. RADIATION DOSE: NA LIMITATIONS: none FINDINGS: LUNGS AND PLEURA: No opacities, masses or pneumothorax. No pleural effusion. MEDIASTINUM AND HILAR STRUCTURES: No masses or contour abnormalities. HEART AND VASCULAR STRUCTURES: Heart normal size. No evidence for failure. BONES: No acute findings. HARDWARE: None in the chest. OTHER: No other significant finding. IMPRESSION: NO SIGNIFICANT RADIOGRAPHIC FINDING IN THE CHEST. TECHNICAL DOCUMENTATION: JOB ID: [id number] [employer]- All Rights Reserved Reading location - IP/workstation name: [email or web address]
[2018-10-29 12:54] LABS: APPEARANCE,URINE CLEAR; BILIRUBIN,URINE NEGATIVE (NEGATIVE); COLOR,URINE YELLOW; GLUCOSE, URINE NEGATIVE (NEGATIVE); KETONES,URINE TRACE mg/dL (NEGATIVE); LEUKOCYTE ESTERASE,URINE NEGATIVE (NEGATIVE); NITRITE,URINE NEGATIVE (NEGATIVE); PROTEIN,URINE NEGATIVE (NEGATIVE); URINE SPECIFIC GRAVITY 1.015; UROBILINOGEN,URINE NEGATIVE mg/dL (<2.0)
[2018-10-29 12:57] LABS: ABSOLUTE BASOPHILS # (AUTO) 0.1 10^3/uL (0.0-0.2); ABSOLUTE EOSINOPHILS # (AUTO) 0.1 10^3/uL (0.0-0.6); ABSOLUTE MONOCYTES (AUTO) 0.4 10^3/uL (0.1-1.4); ABSOLUTE NEUT (AUTO) 6.9 10^3/uL (1.7-8.2); BASOPHILS % (AUTO) 0.8 % (0-2); EOSINOPHILS % (AUTO) 1.2 % (0-6); HEMATOCRIT 35.5 % (37.9-51.0); HEMOGLOBIN 12.4 g/dL (13.5-17.0); LYMPHOCYTES % (AUTO) 11.6 % (13-45); MEAN CORPUSCULAR HGB CONC 34.9 g/dL (32.0-36.0); MEAN CORPUSCULAR VOLUME 89 fl (80-97); MONOCYTES % (AUTO) 4.6 % (3-13); PLATELET COUNT 285 10^3/uL (150-450); RED BLOOD COUNT 3.99 10^6/uL (4.35-5.55); RED CELL DISTRIBUTION WIDTH 15.2 % (11.5-14.0); SEGMENTED NEUTROPHILS % (AUTO) 81.8 % (42-78); TOTAL CELLS COUNTED % (AUTO) 100 %; WHITE BLOOD COUNT 8.5 10^3/uL (4.0-10.5)
[2018-10-29 13:11] LABS: ANION GAP 6 (5-19); BLOOD UREA NITROGEN 29 mg/dL (7-20); CALCIUM 9.7 mg/dL (8.4-10.2); CARBON DIOXIDE 26 mmol/L (22-30); CHLORIDE 107 mmol/L (98-107); GLUCOSE 122 mg/dL (75-110); SODIUM 139.2 mmol/L (137-145)
== END ==
LOC: OD 11:41
PROVIDERS: ATTEND Orthopaedic Surgery
DX: Z01.810 Encounter for preprocedural cardiovascular examination (principal); Z01.811 Encounter for preprocedural respiratory examination; E11.9 Type 2 diabetes mellitus without complications; M17.11 Unilateral primary osteoarthritis, right knee; J44.9 Chronic obstructive pulmonary disease, unspecified
CPT/HCPCS: 36415; 71046; 80048; 81001; 83036; 85025; 93005; 93010

== ENCOUNTER → 2018-11-07 | Outpatient (CLI) | payer MEDICARE, OTHER ==
[2018-11-07 14:13] LABS: HEMATOCRIT 35.3 % (37.9-51.0); MEAN CORPUSCULAR HEMOGLOBIN 30.5 pg (27.0-33.4); MEAN CORPUSCULAR HGB CONC 33.9 g/dL (32.0-36.0); MEAN CORPUSCULAR VOLUME 90 fl (80-97); PLATELET COUNT 257 10^3/uL (150-450); RED BLOOD COUNT 3.93 10^6/uL (4.35-5.55); RED CELL DISTRIBUTION WIDTH 15.5 % (11.5-14.0); WHITE BLOOD COUNT 7.3 10^3/uL (4.0-10.5)
[2018-11-07 14:18] LABS: INTERNATIONAL RATION (INR) 0.84; PARTIAL THROMBOPLASTIN TIME 32.2 SEC (23.5-35.8)
[2018-11-07 14:41] LABS: ANION GAP 9 (5-19); BLOOD UREA NITROGEN 23 mg/dL (7-20); CALCIUM 9.5 mg/dL (8.4-10.2); CARBON DIOXIDE 29 mmol/L (22-30); CHLORIDE 105 mmol/L (98-107); GLUCOSE 114 mg/dL (75-110); POTASSIUM 4.5 mmol/L (3.6-5.0); SODIUM 143.3 mmol/L (137-145)
== END ==
LOC: OD 13:22
PROVIDERS: ATTEND Internal Medicine Cardiovascular Disease
DX: I10 Essential (primary) hypertension (principal); D64.9 Anemia, unspecified; Z79.01 Long term (current) use of anticoagulants; Z79.899 Other long term (current) drug therapy
CPT/HCPCS: 36415; 80048; 85027; 85610; 85730

== ENCOUNTER 2018-11-25 08:15 | Inpatient (IN) | payer MEDICARE, OTHER ==
--- NOTE | 2018-11-22 16:55 | Physician Advisory Note ---
Physician Advisor ProgressNote .: Pursuant to the plan for [facility], I have reviewed the medical record for this patient. Physician Advisor Statement: Appropriate for Inpatient status for TKA, surgical necessity points documented: 73yo w/COPD & ongoing smoking, DM, neuropathy of all extremities, Alzheimers dz, depression & PTSD, valvular heart dz & a bundle branch block, PVD, IVANA w/CPAP at night, meds incl MTX (immunosuppressive), blindness. 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 CK
[2018-12-16] MEDS ORDERED: BUPIVACAINE INJ/PF LIPOSOME/PF 266 MG/20 ML SDV INJ PRN (05:00)
[2018-12-16] MEDS ORDERED: CLINDAMYCIN 600 MG/D5W RTU 600 MG/50 ML RTUPB IV PRN (05:00)
[2018-12-16] MEDS ORDERED: LIDOCAINE 0.5% INJ-PF (5 MG/ML) 50 ML SDV SUBCUT PRN (05:00)
[2018-12-16] MEDS ORDERED: LACTATED RINGERS 1000 ML IV PRN (05:00)
[2018-12-16] MEDS ORDERED: PANTOPRAZOLE SODIUM 20 MG TABLET.DR PO PRN (05:00)
[2018-12-16] MEDS ORDERED: VANCOMYCIN HCL 1,000 MG in DEXTROSE 5%-WATER 250 ML IV PRN (05:00)
[2018-12-16] MEDS ORDERED: IBUPROFEN 800 MG in NORMAL SALINE 250 ML IV PRN (05:00)
[2018-12-16] MEDS ORDERED: OXYCODONE HCL SR 10 MG TABLET PO PRN (05:00)
[2018-12-16] MEDS ORDERED: CEFAZOLIN INJ 1 GM VIAL IV PRN (05:00)
[2018-12-16] MEDS ORDERED: OXYCODONE HCL SR 10 MG TABLET PO ONE (05:37)
[2018-12-16] MEDS ORDERED: CLINDAMYCIN 600 MG/D5W RTU 600 MG/50 ML RTUPB IV ONE (05:38)
[2018-12-16] MEDS ORDERED: PANTOPRAZOLE SODIUM 20 MG TABLET.DR PO ONE (05:38)
[2018-12-16] MEDS ORDERED: FENTANYL CITRATE INJ/PF 100 MCG/2 ML AMPUL ONE (06:28)
[2018-12-16] MEDS ORDERED: MIDAZOLAM 2 MG/2 ML INJ ONE (06:28)
[2018-12-16] MEDS ORDERED: PROPOFOL INJ 200 MG/20 ML VIAL IV ONE (06:29)
[2018-12-16] MEDS ORDERED: DEXAMETHASONE SOD PHOSPHATE INJ 4 MG/1 ML VIAL ONE (06:29)
[2018-12-16] MEDS ORDERED: ONDANSETRON HCL INJ/PF 4 MG/2 ML SDV ONE (06:29)
[2018-12-16] MEDS ORDERED: LIDOCAINE 0.5% INJ-PF (5 MG/ML) 50 ML SDV ONE (06:30)
[2018-12-16] MEDS ORDERED: EPHEDRINE SULFATE INJ 50 MG/1 ML AMPULE ONE (06:59)
[2018-12-16] MEDS ORDERED: TRANEXAMIC ACID INJ/PF 1,000 MG/10 ML SDV IV ONE ×3 (07:11→15:30)
[2018-12-16] MEDS ORDERED: THROMBIN (BOVINE) TOPICAL 20000 UNIT VIAL ONE (07:11)
[2018-12-16] MEDS ORDERED: BUPIVACAINE HCL 0.5%-EPI 1:200000 INJ/PF 30 ML VIAL ONE (07:11)
[2018-12-16] MEDS ORDERED: DIPHENHYDRAMINE HCL 50 MG/ML VIAL IV PRN ×2 (08:04→08:38)
[2018-12-16] MEDS ORDERED: MORPHINE SULFATE 10 MG/ML INJ IV PRN (08:04)
[2018-12-16] MEDS ORDERED: FENTANYL CITRATE INJ/PF 100 MCG/2 ML AMPUL IV PRN ×3 (08:04)
[2018-12-16] MEDS ORDERED: MEPERIDINE HCL/PF INJ 25 MG/1 ML DISP.SYRIN IV PRN (08:04)
[2018-12-16] MEDS ORDERED: ONDANSETRON HCL INJ/PF 4 MG/2 ML SDV IV PRN ×2 (08:04→08:38)
[2018-12-16] MEDS ORDERED: PROMETHAZINE HCL INJ 25 MG/1 ML VIAL IV PRN ×2 (08:04)
[2018-12-16] MEDS ORDERED: ONDANSETRON 4 MG TAB.RAPDIS PO PRN (08:38)
[2018-12-16] MEDS ORDERED: RINGERS SOLUTION,LACTATED 1,000 ML IV PRN (08:38)
[2018-12-16] MEDS ORDERED: MAG HYDROX/AL HYDROX/SIMETH SUSP 30 ML UDCUP PO PRN (08:38)
[2018-12-16] MEDS ORDERED: ZOLPIDEM TARTRATE 5 MG TABLET PO PRN (08:38)
[2018-12-16] MEDS ORDERED: ACETAMINOPHEN 325 MG TABLET PO PRN (08:38)
--- NOTE | 2018-12-16 08:42 | Operative Report ---
Operative Report DATE OF SURGERY: 12/16/18 PREOPERATIVE DIAGNOSIS: Right knee arthritis OPERATION: Right knee arthroplasty SURGEON: GREGORIO TRAN ANESTHESIA: Spinal TISSUE REMOVED OR ALTERED: Bone to pathology ESTIMATED BLOOD LOSS: 75 PROCEDURE: Implants used: Femur: [place] triathlon size 6 CR femur Tibia: 6 tibia Tibial liner: 9 mm CS insert Patella: 40 mm oval patella Procedure with the patient supine on the operating table the right the limb is prepped and draped in a sterile fashion. The limb was elevated for exsanguination and the tourniquet inflated to 280 torr. A standard midline median parapatellar approach the knee is taken. Access is gained to the femoral canal through the intercondylar notch. Intramedullary alignment instrumentation used to resect 10 mm of distal femur in 5 of valgus. Sizing guide indicated a size 6 femur. Appropriate cutting jig is then used to fashion anterior posterior and chamfer cuts. A trial reduction femurs performed and this is judged to be adequate. Attention was next turned to the tibia. Using an extra medullary alignment system 9 millimeters was resected off the lateral tibial plateau. This is sized to a size 6 tibia. A trial reduction was now performed with a 6 femur and a 6 tibia using a 9 millimeters spacer. It is full extension and central patellofemoral tracking. The articular surface the patella was next resected using an oscillating saw. All trial implants were removed. Polymethylmethacrylate is mixed and used to cement the above implants in place. On adequate curing the cement excess cement was removed the tourniquet was deflated hemostasis obtained the wound is then closed in layers using interrupted Vicryl followed by kaya. A sterile compressive dressing was applied and the patient returned to recovery room in satisfactory condition.
--- NOTE | 2018-12-16 09:42 | RADIOLOGY REPORT (SQ) ---
EXAM DESCRIPTION: KNEE RIGHT 2 VIEWS COMPLETED DATE/TIME: 12/16/2018 9:32 am REASON FOR STUDY: Post OP -Long Cassette in PACU M17.11 UNILATERAL PRIMARY OSTEOARTHRITIS, RIGHT KN EE COMPARISON: None. NUMBER OF VIEWS: Two view(s). TECHNIQUE: Digital radiographic images of the right knee post-procedure. LIMITATIONS: None. FINDINGS: BONES: No worrisome or unexpected findings post-procedure. DEVICE: Total knee arthroplasty. SOFT TISSUES: No worrisome findings. Expected postoperative soft tissue changes. IMPRESSION: 1. SATISFACTORY POSTOPERATIVE RIGHT KNEE. TECHNICAL DOCUMENTATION: JOB ID: [id number] [employer]- All Rights Reserved Reading location - IP/workstation name: [email or web address]
[2018-12-16] MEDS: TRANEXAMIC ACID INJ/PF 1,000 MG/10 ML SDV IV ONE ×2 (09:45→10:35)
[2018-12-16] MEDS ORDERED: (PENDING PHARMACY ID) (Donepezil Hcl [Aricept] 10 MG) PO SCH (10:00)
[2018-12-16] MEDS ORDERED: (PENDING PHARMACY ID) (Citalopram Hydrobromide [Celexa 40 Mg Tablet] 40 MG) PO SCH (10:00)
[2018-12-16] MEDS: CITALOPRAM HYDROBROMIDE 20 MG TABLET PO SCH (10:55)
[2018-12-16] MEDS: PRENATAL VITAMIN W DHA CAPSULE PO SCH (10:55)
[2018-12-16] MEDS: ALLOPURINOL 300 MG TABLET PO SCH (10:55)
[2018-12-16] MEDS: SENNOSIDES/DOCUSATE 8.6-50 MG 1 EACH TABLET PO SCH ×2 (10:55→17:36)
[2018-12-16] MEDS: ASPIRIN 81 MG TABLET, CHEWABLE PO SCH (10:56)
[2018-12-16] MEDS: OXYCODONE HCL SR 10 MG TABLET PO SCH ×2 (10:56→22:00)
[2018-12-16] MEDS ORDERED: EZETIMIBE 10 MG TABLET PO SCH (12:00)
[2018-12-16] MEDS: IBUPROFEN 800 MG in NORMAL SALINE 250 ML IV SCH ×2 (13:57→21:59)
[2018-12-16] MEDS: OXYCODONE HCL IR 5 MG TABLET PO PRN (13:59)
[2018-12-16] MEDS ORDERED: VANCOMYCIN HCL 1,000 MG in DEXTROSE 5%-WATER 250 ML IV ONE (20:38)
[2018-12-17] MEDS ORDERED: PANTOPRAZOLE SODIUM 40 MG TABLET.DR PO SCH (06:00)
[2018-12-17] MEDS: IBUPROFEN 800 MG in NORMAL SALINE 250 ML IV SCH (06:08)
[2018-12-17 06:42] LABS: HEMATOCRIT 28.9 % (37.9-51.0); HEMOGLOBIN 9.9 g/dL (13.5-17.0); MEAN CORPUSCULAR HEMOGLOBIN 31.4 pg (27.0-33.4); MEAN CORPUSCULAR HGB CONC 34.1 g/dL (32.0-36.0); MEAN CORPUSCULAR VOLUME 92 fl (80-97); PLATELET COUNT 234 10^3/uL (150-450); RED BLOOD COUNT 3.14 10^6/uL (4.35-5.55); RED CELL DISTRIBUTION WIDTH 14.8 % (11.5-14.0); WHITE BLOOD COUNT 10.3 10^3/uL (4.0-10.5)
--- NOTE | 2018-12-17 06:52 | PDOC DISCHARGE SUMMARY ---
General - Admit/Disc Date/PCP Admission Date/Primary Care Provider: 12/16/18 05:24 JENNIFER MCGRATH MD Discharge Date: 12/17/18 - Additional Information Resuscitation Status: Full Code Home Medications: Albuterol Sulfate [Proair HFA Inhalation Aerosol 8.5 gm MDI] 1 puff IH Q6HP PRN 12/16/18 Allopurinol [Zyloprim 300 mg Tablet] 300 mg PO DAILY 12/16/18 Aspirin [Aspirin 81 mg Chewable Tablet] 81 mg PO DAILY 12/16/18 Cholecalciferol (Vitamin D3) [Vitamin D3] 2,000 unit PO DAILY 12/16/18 Citalopram Hydrobromide [Celexa 40 mg Tablet] 40 mg PO DAILY 12/16/18 Cyanocobalamin (Vitamin B-12) [Vitamin B-12] 2,000 mcg PO DAILY 12/16/18 Donepezil HCl [Aricept] 10 mg PO DAILY 12/16/18 Ezetimibe [Zetia 10 mg Tablet] 10 mg PO DAILY 12/16/18 Ferrous Sulfate [Feosol 325 mg Tablet] 325 mg PO DAILY 12/16/18 Fluticasone Propionate [Flonase Nasal Askov 50 Mcg/Askov 16 gm] 1 spray NASL DAILY 12/16/18 Fluticasone/Salmeterol [Advair 250-50 Diskus 14 Dose/Diskus] 1 puff IH Q12 12/16/18 Folic Acid [Folvite 1 mg Tablet] 1 mg PO DAILY 12/16/18 Glimepiride [Amaryl] 2 mg PO DAILY 12/16/18 Losartan Potassium [Cozaar 100 mg Tablet] 100 mg PO DAILY 12/16/18 Melatonin 10 mg PO HSP PRN 12/16/18 Meloxicam [Mobic] 7.5 mg PO DAILY 12/16/18 Methotrexate Sodium [Rheumatrex 2.5 mg Tablet] 20 mg PO WE@1000 12/16/18 Montelukast Sodium [Singulair 10 mg Tablet] 10 mg PO DAILY 12/16/18 Nitroglycerin 0.4 mg SL Q5MP PRN 12/16/18 Pravastatin Sodium [Pravachol] 40 mg PO QHS 12/16/18 Pregabalin [Lyrica 100 mg Capsule] 100 mg PO Q8 12/16/18 Ropinirole HCl [Requip] 1 mg PO TID 12/16/18 Sildenafil Citrate [Viagra] 100 mg PO .30MIN PRIOR TO SEX MDD FOR ERECTILE DYSFUNCTION 12/16/18 Sitagliptin Phos/Metformin HCl [Janumet Xr 100-1,000 mg Tablet] 1 tab PO DAILY 12/16/18 Tiotropium Oxford [Spiriva Handihaler 5 Cap/Kit (18 Mcg/Cap)] 1 puff IH DAILY 12/16/18 Tizanidine HCl [Zanaflex 4 mg Tablet] 4 mg PO QHS 12/16/18 Trazodone HCl [Desyrel 50 mg Tablet] 25 mg PO HSP PRN 12/16/18 History of Present Illness History of Present Illness: MERE PEÑA is a 73 year old male Patient is a 73-year-old white male with progressive right knee pain and functional disability second osteoarthritis. Patient is admitted for elective right knee arthroplasty. Hospital Course Hospital Course: Patient is admitted through the operating where he undergoes an unconjugated right knee arthroplasty. He ambulates 300 feet with physical therapy on the day of surgery. Dressing was changed on the first postoperative morning. Wound is well approximated kaya. Is clean and dry. Distal neurovascular examination is intact. Minimal pedal edema. Physical Exam Vital Signs: Temp Pulse Resp BP Pulse Ox 36.6 C 79 17 140/54 H 98 12/16/18 23:15 12/16/18 23:15 12/16/18 23:15 12/16/18 23:15 12/16/18 23:15 Intake & Output 12/15/18 12/16/18 12/17/18 06:59 06:59 06:59 Intake Total 0 5161 Output Total 500 Balance 0 4661 Weight 81.2 kg Physical Exam: Middle-aged white male sitting up in bed. He is conversant, alert, and oriented. Patient is appropriate. General appearance: PRESENT: no acute distress Head exam: PRESENT: normocephalic Respiratory exam: PRESENT: unlabored Cardiovascular exam: PRESENT: RRR Pulses: PRESENT: +1 pedal pulses bilateral Vascular exam: PRESENT: normal capillary refill GI/Abdominal exam: PRESENT: soft Rectal exam: PRESENT: deferred Extremities exam: PRESENT: other - Right knee dressing change on postop day 1. Wound is well approximated kaya. Is clean dry and intact. Neurological exam: PRESENT: alert, awake, oriented to person, oriented to place, oriented to time, oriented to situation. ABSENT: motor sensory deficit Psychiatric exam: PRESENT: appropriate affect, normal mood. ABSENT: homicidal ideation, suicidal ideation Skin exam: PRESENT: dry, intact, warm. ABSENT: cyanosis, rash Results Impressions: Knee X-Ray 12/16/18 08:39 IMPRESSION: 1. SATISFACTORY POSTOPERATIVE RIGHT KNEE. Status: Imported from PACS Qualifiers - * PATIENT BEING DISCHARGED WITH ANY OF THE FOLLOWING DIAGNOSIS: No VTE patient discharged on overlapping Therapy?: Yes Acute Heart Failure - Is this a Heart Failure Patient?: No LVEF < 40%?: No- if no continue to question #3 Plan Discharge Plan: Patient be discharged home with home health services and DME. Follow-up with Dr. Percy Johns [place] for surgery in 2 weeks for staple removal.
[2018-12-17 06:56] LABS: ANION GAP 12 (5-19); BLOOD UREA NITROGEN 26 mg/dL (7-20); CARBON DIOXIDE 22 mmol/L (22-30); CHLORIDE 103 mmol/L (98-107); GLUCOSE 203 mg/dL (75-110); SODIUM 136.9 mmol/L (137-145)
[2018-12-17] MEDS: OXYCODONE HCL IR 5 MG TABLET PO PRN (08:51)
[2018-12-17 08:57] VITALS: BP 123/71
[2018-12-17] MEDS: SENNOSIDES/DOCUSATE 8.6-50 MG 1 EACH TABLET PO SCH (09:25)
[2018-12-17] MEDS: OXYCODONE HCL SR 10 MG TABLET PO SCH (09:25)
[2018-12-17] MEDS: PRENATAL VITAMIN W DHA CAPSULE PO SCH (09:25)
[2018-12-17] MEDS: CITALOPRAM HYDROBROMIDE 20 MG TABLET PO SCH (09:25)
[2018-12-17] MEDS: ASPIRIN 81 MG TABLET, CHEWABLE PO SCH (09:27)
[2018-12-17] MEDS: ALLOPURINOL 300 MG TABLET PO SCH (09:27)
[2018-12-17] MEDS: DONEPEZIL HCL 5 MG TABLET PO SCH ×2 (09:27→09:29)
[2018-12-17] MEDS ORDERED: TRANEXAMIC ACID INJ/PF 1,000 MG/10 ML SDV IV ONE (11:00)
== END 2018-12-17 11:38 | disposition home health service (06) | DRG 470 ==
LOC: INOR 12-16 05:24 → 4S 12-16 10:21
PROVIDERS: ADMIT Orthopaedic Surgery; ATTEND Orthopaedic Surgery
PROC: 0SRC0J9 Replacement of Right Knee Joint with Synthetic Substitute, Cemented, Open Approach (ICD-10-PCS; principal; 2018-12-16 07:30)
DX: M17.11 Unilateral primary osteoarthritis, right knee (principal); K21.9 Gastro-esophageal reflux disease without esophagitis; G30.9 Alzheimer's disease, unspecified; F02.80 Dementia in other diseases classified elsewhere, unspecified severity, without behavioral disturbance, psychotic disturbance, mood disturbance, and anxiety; J44.9 Chronic obstructive pulmonary disease, unspecified; F32.9 Major depressive disorder, single episode, unspecified; E11.40 Type 2 diabetes mellitus with diabetic neuropathy, unspecified; F41.9 Anxiety disorder, unspecified; M10.9 Gout, unspecified; N52.9 Male erectile dysfunction, unspecified; Z83.3 Family history of diabetes mellitus; E78.00 Pure hypercholesterolemia, unspecified; Z79.82 Long term (current) use of aspirin; Z79.51 Long term (current) use of inhaled steroids; Z79.899 Other long term (current) drug therapy
CPT/HCPCS: 01402; 36415; 80048; 82962; 84132; 85027; 88305; 88311; 94799; C1713; C1776; J1100; J1741; J2250; J2405; J2704; J3010; J3370; J3490; J7050; J7060

== ENCOUNTER → 2018-12-03 | Outpatient (CLI) | payer MEDICARE, OTHER ==
[2018-12-03 10:21] LABS: APPEARANCE,URINE CLEAR; BILIRUBIN,URINE NEGATIVE (NEGATIVE); COLOR,URINE YELLOW; GLUCOSE, URINE NEGATIVE (NEGATIVE); KETONES,URINE NEGATIVE (NEGATIVE); LEUKOCYTE ESTERASE,URINE NEGATIVE (NEGATIVE); NITRITE,URINE NEGATIVE (NEGATIVE); PROTEIN,URINE NEGATIVE (NEGATIVE); URINE SPECIFIC GRAVITY 1.013; UROBILINOGEN,URINE NEGATIVE mg/dL (<2.0)
[2018-12-03 10:22] LABS: ABSOLUTE BASOPHILS # (AUTO) 0.1 10^3/uL (0.0-0.2); ABSOLUTE EOSINOPHILS # (AUTO) 0.2 10^3/uL (0.0-0.6); ABSOLUTE LYMPHOCYTES (AUTO) 0.9 10^3/uL (0.5-4.7); ABSOLUTE MONOCYTES (AUTO) 0.7 10^3/uL (0.1-1.4); BASOPHILS % (AUTO) 0.8 % (0-2); EOSINOPHILS % (AUTO) 2.6 % (0-6); HEMATOCRIT 33.2 % (37.9-51.0); HEMOGLOBIN 11.1 g/dL (13.5-17.0); LYMPHOCYTES % (AUTO) 12.9 % (13-45); MEAN CORPUSCULAR HEMOGLOBIN 30.6 pg (27.0-33.4); MEAN CORPUSCULAR HGB CONC 33.5 g/dL (32.0-36.0); MEAN CORPUSCULAR VOLUME 91 fl (80-97); MONOCYTES % (AUTO) 10.3 % (3-13); PLATELET COUNT 233 10^3/uL (150-450); RED BLOOD COUNT 3.63 10^6/uL (4.35-5.55); RED CELL DISTRIBUTION WIDTH 15.3 % (11.5-14.0); SEGMENTED NEUTROPHILS % (AUTO) 73.4 % (42-78); TOTAL CELLS COUNTED % (AUTO) 100 %; WHITE BLOOD COUNT 6.8 10^3/uL (4.0-10.5)
[2018-12-03 10:41] LABS: ANION GAP 9 (5-19); BLOOD UREA NITROGEN 22 mg/dL (7-20); CALCIUM 9.2 mg/dL (8.4-10.2); CARBON DIOXIDE 27 mmol/L (22-30); CHLORIDE 106 mmol/L (98-107); GLUCOSE 129 mg/dL (75-110); POTASSIUM 5.1 mmol/L (3.6-5.0); SODIUM 142.1 mmol/L (137-145)
== END ==
LOC: OD 09:46
PROVIDERS: ATTEND Orthopaedic Surgery
DX: Z01.812 Encounter for preprocedural laboratory examination (principal); M17.11 Unilateral primary osteoarthritis, right knee; E11.9 Type 2 diabetes mellitus without complications; I10 Essential (primary) hypertension
CPT/HCPCS: 36415; 80048; 81001; 83036; 85025

== ENCOUNTER → 2019-02-27 | Outpatient (CLI) | payer MEDICARE, OTHER ==
--- NOTE | 2019-02-27 09:03 | WOMENS IMAGING REPORT ---
EXAM DESCRIPTION: BONE DENSITY HIP/SPINE COMPLETED DATE/TIME: 02/27/2019 8:21 am REASON FOR STUDY: Z79.52 Z79.52 [facility] (CURRENT) USE OF SYSTEMIC STEROIDS COMPARISON: 2015 TECHNIQUE: Dual-Energy X-ray Absorptiometry (DEXA) of the AP Spine and Hip. LIMITATIONS: None. FINDINGS: LUMBAR SPINE: The bone mineral density (BMD) measured from L1-L4 in the AP projection correlates with a T-score of 1.7, which is normal as defined by the World Health Organization. BMD Change vs Baseline: -2.6% HIP: The bone mineral density (BMD) measured in the left hip correlates with a T-score of -0.4, which is n ormal as defined by the World Health Organization. BMD Change vs Baseline: 4.7% 10 year Fracture Risk Assessment: Major Osteoporotic Fracture: Not available. Hip Fracture: Not available. IMPRESSION: 1. LUMBAR SPINE WHO CLASSIFICATION: NORMAL. 2. HIP WHO CLASSIFICATION: NORMAL. OVERALL ASSESSMENT: WHO CLASSIFICATION: NORMAL. COMMENT: The World Health Organization defines low BMD as follows: T-score: Normal: Greater than -1.0 Osteopenia: Between -1.0 and -2.5 Osteoporosis: Less than -2.5 without fractures Established osteoporosis: Less than -2.5 with fractures In general, you may wish to consider: Diagnosis Treatment Follow-up DEXA Normal BMD Prevention 2-3 years Osteopenia Prevention/Therapy 1-2 years Osteoporosis Therapy Yearly TECHNICAL DOCUMENTATION: JOB ID: [id number] [employer]- All Rights Reserved Reading location - IP/workstation name: [email or web address]
== END ==
LOC: WI 07:50
PROVIDERS: ATTEND Internal Medicine
DX: Z79.52 Long term (current) use of systemic steroids (principal)
CPT/HCPCS: 77080

== ENCOUNTER 2019-03-22 16:23 | Emergency (ER) | payer MEDICARE, OTHER ==
[2019-03-22] MEDS ORDERED: IBUPROFEN 600 MG TABLET PO ONE (17:20)
--- NOTE | 2019-03-22 17:23 | ER Document Report ---
HPI - HPI Time Seen by Provider: 03/22/19 17:16 Pain Level: 4 Notes: Patient is a 74-year-old male with history of hypertension, COPD, bilateral knee replacements, right hip replacement, type 2 diabetes who presents complaining of left hip pain status post fall from 3 feet off of a ladder. Patient states that he landed on his left hip and has pain in that area. Patient states that he has been able to ambulate, but does have a limp. Patient is requesting an x-ray. He is otherwise feeling well. He is urinating normally. Patient states that the pain does not radiate. He did not hit his head or lose conscious. Denies any headache, fever, head injury, neck pain, changes in vision/speech/mentation/hearing, URI, sore throat, chest pain, palpitations, syncope, cough, shortness of breath, wheeze, dyspnea, abdominal pain, nausea/vomiting/diarrhea, urinary retention, dysuria, hematuria, loss of control of bowel or bladder, numbness/tingling, saddle anesthesia, muscle paralysis/weakness, or rash. - ROS Systems Reviewed and Negative: Yes All other systems reviewed and negative - CONSTITUTIONAL Constitutional: DENIES: Fever, Chills - EENT EENT: DENIES: Sore Throat, Ear Pain, Eye problems - NEURO Neurology: DENIES: Headache, Weakness, Vision blurred, Dizzinesss / Vertigo - CARDIOVASCULAR Cardiovascular: DENIES: Chest pain - RESPIRATORY Respiratory: DENIES: Trouble Breathing, Coughing - GASTROINTESTINAL Gastrointestinal: DENIES: Abdominal Pain, Black / Bloody Stools - URINARY Urinary: DENIES: Dysuria, Urgency, Frequency - REPRODUCTIVE Reproductive: DENIES: : - MUSCULOSKELETAL Musculoskeletal: REPORTS: Extremity pain - left hip Past Medical History - Social History Smoking Status: Former Smoker Chew tobacco use (# tins/day): No Frequency of alcohol use: None Drug Abuse: None Family History: Reviewed & Not Pertinent Patient has suicidal ideation: No Patient has homicidal ideation: No - Past Medical History Cardiac Medical History: Reports: Hx Hypercholesterolemia, Hx Hypertension - losartan, Hx Peripheral Vascular Disease Denies: Hx Atrial Fibrillation, Hx Congestive Heart Failure, Hx Coronary Artery Disease, Hx Heart Attack, Hx Pulmonary Embolism, Hx Heart Murmur Pulmonary Medical History: Reports: Hx Bronchitis, Hx COPD - inhalers,neb, Hx Pneumonia - hx of, Hx Sleep Apnea - CPAP at night Denies: Hx Asthma, Hx Respiratory Failure, Hx Tuberculosis Neurological Medical History: Denies: Hx Cerebrovascular Accident, Hx Seizures Endocrine Medical History: Reports: Hx Diabetes Mellitus Type 2. Denies: Hx Gra ves' Disease, Hx Hyperthyroidism, Hx Hypothyroidism Renal/ Medical History: Reports: Hx Benign Prostatic Hyperplasia - prostatectomy 2006. Denies: Hx End Stage Renal Disease, Hx Kidney Stones, Hx Peritoneal Dialysis Malignancy Medical History: Denies Hx Leukemia, Denies Hx Lung Cancer GI Medical History: Denies: Hx Hepatitis Musculoskeletal Medical History: Reports Hx Arthritis - generalized, Denies Hx Fibromyalgia, Denies Hx Multiple Sclerosis, Denies Hx Muscular Dystrophy, Denies Hx Systemic Lupus Erythematosus Psychiatric Medical History: Reports: Hx Depression, Hx Post Traumatic Stress Disorder Denies: Hx Bipolar Disorder, Hx Dementia, Hx Schizophrenia Traumatic Medical History: Denies: Hx Fractures Infectious Medical History: Denies: Hx Hepatitis, Hx HIV Past Surgical History: Reports: Hx Orthopedic Surgery - right hip replacement, right knee scope, Hx Tonsillectomy. Denies: Hx Appendectomy, Hx Bowel Surgery, Hx Cholecystectomy, Hx Coronary Artery Bypass Graft, Hx Gastric Bypass Surgery, Hx Herniorrhaphy, Hx Open Heart Surgery, Hx Pacemaker - Immunizations Hx Diphtheria, Pertussis, Tetanus Vaccination: Yes Hx Pneumococcal Vaccination: 05/09/13 Vertical Provider Document - CONSTITUTIONAL Agree With Documented VS: Yes Notes: PHYSICAL EXAMINATION: GENERAL: Well-appearing, well-nourished and in no acute distress. LUNGS: Breath sounds clear to auscultation bilaterally and equal. No wheezes rales or rhonchi. HEART: Regular rate and rhythm without murmurs, rubs, gallops. ABDOMEN: Soft, nontender, nondistended abdomen. No guarding, no rebound. No masses appreciated. Normal bowel sounds present. No CVA tenderness bilaterally. No pulsatile mass Musculoskeletal: LLE: + tenderness left lateral hip. No deformity. N/V intact distal. No ecchymosis. FROM to passive. LROM to active due to pain. RLE: non-tender. FROM. N/V intact distal. Back: FROM to passive/active. Strength 5+/5. No vertebral point tenderness, stepoffs, or deformities. No other bony tenderness, erythema, swelling, or ecchymosis. SLR negative b/l. No SI jt tenderness. No foot drop Extremities: No cyanosis, clubbing, or edema b/l. Peripheral pulses 2+. Capillary refill less than 2 seconds. NEUROLOGICAL: Normal speech, limping gait. Normal sensory, motor exams. Reflexes 2+ b/l. PSYCH: Normal mood, normal affect. SKIN: Warm, Dry, normal turgor, no rashes or lesions noted. - INFECTION CONTROL TRAVEL OUTSIDE OF THE [place] IN LAST 30 DAYS: No Course - Re-evaluation Re-evalutation: 03/22/19 19:17 Patient is an afebrile, well-hydrated, 74-year-old male who presents to the ED with left lateral hip pain which I suspect to be a contusion. Vitals are acceptable without any significant tachycardia, tachypnea, or hypoxia. PE is otherwise unremarkable for any neurovascular compromise, obvious tendon/ligament rupture, obvious fracture/dislocation, septic joint. X-ray was unremarkable for any acute pathology. Pt given motrin. He is able to ambulate around the room with his SPC. Patient is nontoxic-appearing. No other labs or imaging warranted at this time based on H&P. Conservative measures otherwise for symptoms. Recheck with your PCM in 3-5 days. Consider consult orthopedics. Return to the ED with any worsening/concerning symptoms otherwise as reviewed in discharge. Patient is in agreement. - Vital Signs Vital signs: Temp Pulse Resp BP Pulse Ox 98.6 F 79 16 184/73 H 97 03/22/19 16:36 03/22/19 16:36 03/22/19 16:36 03/22/19 16:36 03/22/19 16:36 Discharge - Discharge Clinical Impression: Left hip pain Condition: Stable Disposition: HOME, SELF-CARE Additional Instructions: Rest, Ice, Compression, Elevation Tylenol/ibuprofen as needed Light stretches daily Strength exercises as able Moist heat and massage may help F/u with your PCP in 3-5 days for a recheck Consider consult(s) with Orthopedics/physical therapy for ongoing/worsening symptoms Return to the ED with any worsening symptoms and/or development of fever, headache, chest pain, palpitations, syncope, shortness of breath, trouble breathing, abdominal pain, n/v/d, muscle weakness/paralysis, numbness/tingling, swelling, redness, or other worsening symptoms that are concerning to you. Forms: Elevated Blood Pressure Referrals: JENNIFER MCGRATH MD [Primary Care Provider] - Follow up as needed [facility] [Provider [facility]] - Follow up as needed
--- NOTE | 2019-03-22 19:03 | RADIOLOGY REPORT (SQ) ---
EXAM DESCRIPTION: HIP LEFT AP/LATERAL COMPLETED DATE/TIME: 03/22/2019 6:37 pm REASON FOR STUDY: left hip pain s/p fall COMPARISON: None. NUMBER OF VIEWS: Two views. TECHNIQUE: AP pelvis and additional frog-leg view of the left hip. LIMITATIONS: None. FINDINGS: MINERALIZATION: Normal. LEFT HIP: No fracture or dislocation. Moderate-severe arthrosis. RIGHT HIP: No fracture or dislocation. Total hip arthroplasty. PUBIS AND ISCHIUM: No fracture. PELVIS: No fracture. SACRUM: No fracture or dislocation. No worrisome bone lesions. LOWER LUMBAR SPINE: No fracture or dislocation. No worrisome bone lesions. Moderate degenerative dis c disease. SOFT TISSUES: No findings. OTHER: No other significant finding. IMPRESSION: NO RADIOGRAPHIC EVIDENCE OF ACUTE INJURY. TECHNICAL DOCUMENTATION: JOB ID: [id number] [employer] All Rights Reserved Reading location - IP/workstation name: [email or web address]
[2019-03-22 19:46] VITALS: BP 156/66
== END 2019-03-22 19:49 | disposition home or self-care (01) ==
LOC: ER 16:23
DX: M25.552 Pain in left hip (principal); W11.XXXA Fall on and from ladder, initial encounter; E11.51 Type 2 diabetes mellitus with diabetic peripheral angiopathy without gangrene; I10 Essential (primary) hypertension; J44.9 Chronic obstructive pulmonary disease, unspecified; Z96.653 Presence of artificial knee joint, bilateral; Z96.642 Presence of left artificial hip joint; Z87.891 Personal history of nicotine dependence
CPT/HCPCS: 99283; 73502; A9270

== ENCOUNTER → 2019-03-27 | Outpatient (CLI) | payer MEDICARE, OTHER ==
--- NOTE | 2019-03-27 11:55 | RADIOLOGY REPORT (SQ) ---
EXAM DESCRIPTION: CHEST PA/LATERAL COMPLETED DATE/TIME: 03/27/2019 11:39 am REASON FOR STUDY: PRE-OP COMPARISON: 10/29/2018 EXAM PARAMETERS: NUMBER OF VIEWS: two views TECHNIQUE: Digital Frontal and Lateral radiographic views of the chest acquired. RADIATION DOSE: NA LIMITATIONS: none FINDINGS: LUNGS AND PLEURA: No opacities, masses or pneumothorax. No pleural effusion. MEDIASTINUM AND HILAR STRUCTURES: No masses or contour abnormalities. HEART AND VASCULAR STRUCTURES: Heart normal size. No evidence for failure. BONES: No acute findings. HARDWARE: None in the chest. OTHER: No other significant finding. IMPRESSION: NO SIGNIFICANT RADIOGRAPHIC FINDING IN THE CHEST. TECHNICAL DOCUMENTATION: JOB ID: [id number] [employer]- All Rights Reserved Reading location - IP/workstation name: [email or web address]
[2019-03-27 12:30] LABS: ABSOLUTE BASOPHILS # (AUTO) 0.1 10^3/uL (0.0-0.2); ABSOLUTE EOSINOPHILS # (AUTO) 0.2 10^3/uL (0.0-0.6); ABSOLUTE LYMPHOCYTES (AUTO) 0.9 10^3/uL (0.5-4.7); ABSOLUTE MONOCYTES (AUTO) 0.6 10^3/uL (0.1-1.4); ABSOLUTE NEUT (AUTO) 5.2 10^3/uL (1.7-8.2); BASOPHILS % (AUTO) 1.1 % (0-2); EOSINOPHILS % (AUTO) 2.2 % (0-6); HEMATOCRIT 34.9 % (37.9-51.0); HEMOGLOBIN 11.7 g/dL (13.5-17.0); LYMPHOCYTES % (AUTO) 13.2 % (13-45); MEAN CORPUSCULAR HEMOGLOBIN 28.6 pg (27.0-33.4); MEAN CORPUSCULAR HGB CONC 33.4 g/dL (32.0-36.0); MEAN CORPUSCULAR VOLUME 86 fl (80-97); MONOCYTES % (AUTO) 8.6 % (3-13); PLATELET COUNT 334 10^3/uL (150-450); RED BLOOD COUNT 4.08 10^6/uL (4.35-5.55); RED CELL DISTRIBUTION WIDTH 16.8 % (11.5-14.0); SEGMENTED NEUTROPHILS % (AUTO) 74.9 % (42-78); TOTAL CELLS COUNTED % (AUTO) 100 %; WHITE BLOOD COUNT 6.9 10^3/uL (4.0-10.5)
[2019-03-27 12:38] LABS: APPEARANCE,URINE CLEAR; BILIRUBIN,URINE NEGATIVE (NEGATIVE); COLOR,URINE YELLOW; GLUCOSE, URINE NEGATIVE (NEGATIVE); KETONES,URINE NEGATIVE (NEGATIVE); LEUKOCYTE ESTERASE,URINE NEGATIVE (NEGATIVE); NITRITE,URINE NEGATIVE (NEGATIVE); PROTEIN,URINE NEGATIVE (NEGATIVE); URINE SPECIFIC GRAVITY 1.012; UROBILINOGEN,URINE NEGATIVE mg/dL (<2.0)
[2019-03-27 12:50] LABS: ANION GAP 9 (5-19); BLOOD UREA NITROGEN 19 mg/dL (7-20); CALCIUM 9.8 mg/dL (8.4-10.2); CARBON DIOXIDE 27 mmol/L (22-30); CHLORIDE 104 mmol/L (98-107); GLUCOSE 114 mg/dL (75-110); POTASSIUM 5.6 mmol/L (3.6-5.0)
--- NOTE | 2019-03-27 13:41 | EKG REPORT ---
SEVERITY:- ABNORMAL ECG - SINUS RHYTHM RBBB AND LPFB : Confirmed by: Zachery Diallo MD 27-Mar-2019 13:40:17
== END ==
LOC: OD 11:27
PROVIDERS: ATTEND Orthopaedic Surgery
DX: M16.12 Unilateral primary osteoarthritis, left hip (principal); E11.9 Type 2 diabetes mellitus without complications
CPT/HCPCS: 36415; 71046; 80048; 81001; 83036; 85025; 93005; 93010

== ENCOUNTER → 2019-03-28 | Outpatient (CLI) | payer MEDICARE, OTHER ==
[2019-03-28 12:08] LABS: ALBUMIN 4.5 g/dL (3.5-5.0); ALKALINE PHOSPHATASE 111 U/L (38-126); ASPARTATE AMINO TRANSFERASE 21 U/L (17-59); BILIRUBIN,DIRECT 0.2 mg/dL (0.0-0.4); BILIRUBIN,TOTAL 0.9 mg/dL (0.2-1.3); CHOLESTEROL 184.22 mg/dL (0-200); TOTAL PROTEIN 7.2 g/dL (6.3-8.2); TRIGLYCERIDES 130 mg/dL (<150)
[2019-03-28 12:20] LABS: DIRECT LDL 147 mg/dL (<100)
== END ==
LOC: OD 10:37
PROVIDERS: ATTEND Physician Assistant
DX: E78.00 Pure hypercholesterolemia, unspecified (principal); Z79.899 Other long term (current) drug therapy
CPT/HCPCS: 36415; 80061; 80076

== ENCOUNTER 2019-04-21 05:25 | Inpatient (IN) | payer MEDICARE, OTHER ==
[~2019-04-21 05:25] MED LIST changes: -ALBUTEROL SULFATE 0.083% NEB 2.5 MG/3 ML AMPUL NEB PRN; +BUPIVACAINE INJ/PF LIPOSOME/PF 266 MG/20 ML SDV INJ PRN; +CLINDAMYCIN 600 MG/D5W RTU 600 MG/50 ML RTUPB IV ONE; +IBUPROFEN 800 MG in NORMAL SALINE 250 ML IV PRN; +OXYCODONE HCL SR 10 MG TABLET PO ONE; +OXYCODONE HCL SR 10 MG TABLET PO PRN; +PANTOPRAZOLE SODIUM 20 MG TABLET.DR PO ONE; +PANTOPRAZOLE SODIUM 20 MG TABLET.DR PO PRN; +VANCOMYCIN HCL 1,000 MG in DEXTROSE 5%-WATER 250 ML IV PRN
[2019-04-21 06:42] LABS: POTASSIUM 4.2 mmol/L (3.6-5.0)
[2019-04-21] MEDS ORDERED: TRANEXAMIC ACID INJ/PF 1,000 MG/10 ML SDV ONE ×2 (06:50→09:27)
[2019-04-21] MEDS ORDERED: FENTANYL CITRATE INJ/PF 100 MCG/2 ML AMPUL ONE (06:50)
[2019-04-21] MEDS ORDERED: DEXAMETHASONE SOD PHOSPHATE INJ 4 MG/1 ML VIAL ONE (06:50)
[2019-04-21] MEDS ORDERED: MIDAZOLAM 2 MG/2 ML INJ ONE (06:50)
[2019-04-21] MEDS ORDERED: ONDANSETRON HCL INJ/PF 4 MG/2 ML SDV ONE (06:50)
[2019-04-21] MEDS ORDERED: MORPHINE SULFATE 10 MG/ML INJ ONE (06:51)
[2019-04-21] MEDS ORDERED: PROPOFOL INJ 200 MG/20 ML VIAL IV ONE ×2 (06:51→06:52)
[2019-04-21] MEDS ORDERED: BUPIVACAINE HCL 0.5%-EPI 1:200000 INJ/PF 30 ML VIAL ONE (07:10)
[2019-04-21] MEDS ORDERED: PROMETHAZINE HCL INJ 25 MG/1 ML VIAL IV PRN ×2 (08:11)
[2019-04-21] MEDS ORDERED: MORPHINE SULFATE 10 MG/ML INJ IV PRN (08:11)
[2019-04-21] MEDS ORDERED: MEPERIDINE HCL/PF INJ 25 MG/1 ML DISP.SYRIN IV PRN (08:11)
[2019-04-21] MEDS ORDERED: FENTANYL CITRATE INJ/PF 100 MCG/2 ML AMPUL IV PRN ×3 (08:11)
[2019-04-21] MEDS ORDERED: DIPHENHYDRAMINE HCL 50 MG/ML VIAL IV PRN ×2 (08:11→08:25)
[2019-04-21] MEDS ORDERED: ALBUTEROL SULFATE HFA (90 MCG/PUFF) 200 PUFF/8.5 GM MDI IH PRN (08:24)
[2019-04-21] MEDS ORDERED: ONDANSETRON HCL INJ/PF 4 MG/2 ML SDV IV PRN (08:25)
[2019-04-21] MEDS ORDERED: MAG HYDROX/AL HYDROX/SIMETH SUSP 30 ML UDCUP PO PRN (08:25)
[2019-04-21] MEDS ORDERED: ONDANSETRON 4 MG TAB.RAPDIS PO PRN (08:25)
[2019-04-21] MEDS ORDERED: ZOLPIDEM TARTRATE 5 MG TABLET PO PRN (08:25)
[2019-04-21] MEDS ORDERED: RINGERS SOLUTION,LACTATED 1,000 ML IV PRN (08:25)
[2019-04-21] MEDS ORDERED: ACETAMINOPHEN 325 MG TABLET PO PRN (08:25)
--- NOTE | 2019-04-21 08:29 | Operative Report ---
Operative Report DATE OF SURGERY: 04/21/19 PREOPERATIVE DIAGNOSIS: Left hip arthritis OPERATION: Left hip arthroplasty SURGEON: GREGORIO TRAN ANESTHESIA: Spinal TISSUE REMOVED OR ALTERED: Femoral head to pathology ESTIMATED BLOOD LOSS: 75 PROCEDURE: Implants used: Femur: Zana Accolade 2 size 5 femur Acetabular shell: 54 mm hemispherical shell Liner: 36 mm flat cross-link polyethylene liner Head: 36 mm chrome cobalt head -5 neck The patient is placed in a right lateral decubitus position on the operating table. The left lower extremity and hindquarter is prepped and draped in a sterile fashion. A curvilinear incision was made over the greater trochanter a posterior approach the hip was taken. The femoral head is dislocated and the femoral neck transected using an oscillating saw. Attention was next turned to the acetabulum. Soft tissues cleared off the acetabulum using electrocautery. The acetabulum was then prepared using a series of hemispherical reamers until a 54 millimeters reamer is seated. Subsequently a T4 millimeters Zana titanium hemispherical shell is impacted into position. A standard flat 36 millimeters cross-link liner is impacted into the shell. Attention was next turned to the femur. Access is gained to the femoral canal using a box osteotome to the piriformis fossa. The femur is then prepared using a series of broaches until a number 5 broach is seated. A trial reduction was now performed using a 36 millimeters head with -5 neck. Preoperative leg length was recreated and is excellent anterior posterior stability. A decision was made to proceed with the above construct. All trial implants were removed. The wound is irrigated with pulsed lavage. A number 5 stem is impacted into the femoral canal. A trial reduction was again performed with a 36 mm head and a -5 neck. Findings as previously. The hip was dislocated one last time and the final chrome-cobalt head is impacted onto the trunnion. The hip was reduced. Wound is copiously irrigated with pulsed lavage. Sent closed in layers using interrupted Vicryl followed by kaya. A sterile dressing is applied and the patient's returned to recovery room in satisfactory patient.
[2019-04-21] MEDS ORDERED: EPHEDRINE SULFATE INJ 50 MG/1 ML AMPULE ONE (08:51)
[2019-04-21] MEDS ORDERED: (PENDING PHARMACY ID) (Cyanocobalamin (Vitamin B-12) [Vitamin B-12] 2,000 MCG) PO SCH (10:00)
[2019-04-21] MEDS ORDERED: (PENDING PHARMACY ID) (Donepezil Hcl [Aricept] 10 MG) PO SCH (10:00)
[2019-04-21] MEDS ORDERED: FERROUS SULFATE 325 MG TABLET PO SCH (10:00)
[2019-04-21] MEDS ORDERED: TRANEXAMIC ACID INJ/PF 1,000 MG/10 ML SDV IV ONE (10:00)
[2019-04-21] MEDS ORDERED: (PENDING PHARMACY ID) (Cholecalciferol (Vitamin D3) [Vitamin D3] 2,000 UNIT) PO SCH (10:00)
[2019-04-21] MEDS ORDERED: (PENDING PHARMACY ID) (Citalopram Hydrobromide [Celexa 40 Mg Tablet] 40 MG) PO SCH (10:00)
--- NOTE | 2019-04-21 10:01 | RADIOLOGY REPORT (SQ) ---
EXAM DESCRIPTION: PELVIS AP COMPLETED DATE/TIME: 04/21/2019 9:04 am REASON FOR STUDY: Post Op Long Cassette in PACU M16.12 UNILATERAL PRIMARY OSTEOARTHRITIS, LEFT HIP COMPARISON: None. NUMBER OF VIEWS: One view TECHNIQUE: Digital radiographic images of the pelvis post-procedure LIMITATIONS: None. FINDINGS: BONES: No worrisome or unexpected findings post-procedure. DEVICE: Left total hip arthroplasty. Previous total right hip arthroplasty. SOFT TISSUES: No worrisome findings. Expected postoperative soft tissue changes. IMPRESSION: SATISFACTORY POSTOPERATIVE PELVIS. TECHNICAL DOCUMENTATION: JOB ID: [id number] [employer]- All Rights Reserved Reading location - IP/workstation name: [email or web address]
[2019-04-21] MEDS: ALLOPURINOL 300 MG TABLET PO SCH (10:53)
[2019-04-21] MEDS: EZETIMIBE 10 MG TABLET PO SCH (10:53)
[2019-04-21] MEDS: CHOLECALCIFEROL (D3) 1,000 UNIT (25 MCG) TABLET PO SCH (10:53)
[2019-04-21] MEDS: OXYCODONE HCL SR 10 MG TABLET PO SCH ×2 (10:53→22:16)
[2019-04-21] MEDS: ASPIRIN 81 MG TABLET, CHEWABLE PO SCH (10:54)
[2019-04-21] MEDS: SENNOSIDES/DOCUSATE 8.6-50 MG 1 EACH TABLET PO SCH ×2 (10:54→17:10)
[2019-04-21] MEDS: CITALOPRAM HYDROBROMIDE 20 MG TABLET PO SCH (10:54)
[2019-04-21] MEDS: PRENATAL VITAMIN W DHA CAPSULE PO SCH (10:56)
[2019-04-21] MEDS: CYANOCOBALAMIN (VITAMIN B-12) 1,000 MCG TABLET PO SCH (11:52)
[2019-04-21] MEDS: IBUPROFEN 800 MG in NORMAL SALINE 250 ML IV SCH ×2 (15:06→22:15)
[2019-04-21] MEDS: FLUTICASONE NASAL SPRAY 50 MCG/SPRY 120 SPRAY/16 GM NASL SCH (17:05)
[2019-04-21] MEDS: VANCOMYCIN HCL 1,000 MG in DEXTROSE 5%-WATER 250 ML IV SCH (17:11)
[2019-04-21] MEDS: OXYCODONE HCL IR 5 MG TABLET PO PRN (17:16)
[2019-04-21] MEDS ORDERED: VANCOMYCIN HCL 1,000 MG in DEXTROSE 5%-WATER 250 ML IV ONE (20:25)
[2019-04-22] MEDS: OXYCODONE HCL IR 5 MG TABLET PO PRN (04:57)
[2019-04-22] MEDS: IBUPROFEN 800 MG in NORMAL SALINE 250 ML IV SCH (05:37)
[2019-04-22] MEDS: VANCOMYCIN HCL 1,000 MG in DEXTROSE 5%-WATER 250 ML IV SCH (05:37)
[2019-04-22 05:50] LABS: HEMATOCRIT 30.6 % (37.9-51.0); HEMOGLOBIN 10.3 g/dL (13.5-17.0); MEAN CORPUSCULAR HEMOGLOBIN 29.4 pg (27.0-33.4); MEAN CORPUSCULAR HGB CONC 33.6 g/dL (32.0-36.0); MEAN CORPUSCULAR VOLUME 87 fl (80-97); PLATELET COUNT 264 10^3/uL (150-450); RED BLOOD COUNT 3.51 10^6/uL (4.35-5.55); RED CELL DISTRIBUTION WIDTH 18.1 % (11.5-14.0); WHITE BLOOD COUNT 11.1 10^3/uL (4.0-10.5)
[2019-04-22] MEDS ORDERED: PANTOPRAZOLE SODIUM 40 MG TABLET.DR PO SCH (06:00)
[2019-04-22 06:07] LABS: ANION GAP 6 (5-19); BLOOD UREA NITROGEN 24 mg/dL (7-20); CALCIUM 8.8 mg/dL (8.4-10.2); CARBON DIOXIDE 28 mmol/L (22-30); CHLORIDE 102 mmol/L (98-107); GLUCOSE 154 mg/dL (75-110); POTASSIUM 4.7 mmol/L (3.6-5.0)
--- NOTE | 2019-04-22 07:04 | PDOC DISCHARGE SUMMARY ---
Impression - Admit/DC Date/PCP Admission Date/Primary Care Provider: 04/21/19 05:25 JENNIFER MCGRATH MD Discharge Date: 04/22/19 - Discharge Diagnosis (1) Arthritis of left hip Is this a current diagnosis for this admission?: Yes - Additional Information Resuscitation Status: Full Code Discharge Diet: Regular Discharge Activity: Balance Activity w/Rest, No tub bath Referrals: GREGORIO TRAN MD [ACTIVE STAFF] - Home Medications: Albuterol Sulfate [Proair Hfa Inhalation Aerosol 8.5 gm Mdi] 2 puff IH QIDP PRN 04/21/19 Allopurinol [Zyloprim 300 mg Tablet] 300 mg PO DAILY 04/21/19 Aspirin [Adult Low Dose Aspirin EC] 81 mg PO DAILY 04/21/19 Cholecalciferol (Vitamin D3) [Vitamin D3 1000 Unit Tablet] 2,000 unit PO DAILY 04/21/19 Citalopram Hydrobromide [Celexa 40 mg Tablet] 1 tab PO DAILY 04/21/19 Ezetimibe [Zetia 10 mg Tablet] 10 mg PO DAILY 04/21/19 Fluticasone/Salmeterol [Advair HFA 115-21 mcg Inhaler] 1 puff IH Q12 04/21/19 Folic Acid [Folvite 1 mg Tablet] 1 mg PO DAILY 04/21/19 Glimepiride [Amaryl] 2 mg PO DAILY 04/21/19 Losartan Potassium [Cozaar 100 mg Tablet] 100 mg PO DAILY 04/21/19 Magnesium Oxide [Mag-Ox 400 mg Tablet] 400 mg PO DAILY 04/21/19 Melatonin/Pyridoxine [Melatonin 5 mg Tablet] 1 each PO HSP PRN 04/21/19 Methotrexate Sodium [Rheumatrex 2.5 mg Tablet] 20 mg PO WE@1000 04/21/19 Mometasone Furoate [Nasonex] 1 spray NS DAILY 04/21/19 Montelukast Sodium [Singulair 10 mg Tablet] 10 mg PO QHS 04/21/19 Nitroglycerin [Nitrostat 0.4 mg (1/150 Gr) Tabs 25/Bottle] 1 tab SL Q5MP PRN 04/21/19 Pravastatin Sodium [Pravachol] 10 mg PO DAILY 04/21/19 Pregabalin [Lyrica 100 Mg Capsule] 100 mg PO Q8 04/21/19 Ropinirole HCl [Requip] 1 mg PO TID 04/21/19 Sitagliptin Phos/Metformin HCl [Janumet Xr 100-1,000 mg Tablet] 1 each PO DAILY 04/21/19 Tiotropium Grayson [Spiriva Handihaler 5 Cap/Kit (18 Mcg/Cap)] 1 cap IH DAILY 04/21/19 Trazodone HCl [Desyrel 50 mg Tablet] 25 mg PO HSP PRN 04/21/19 History of Present Illiness History of Present Illness: MERE PEÑA is a 74 year old male 74-year-old white male with progressive left hip pain and functional disability second osteoarthritis. Patient admitted for elective left hip arthroplasty. Hospital Course Hospital Course: Patient is admitted through the operating room he undergoes an unconjugated left hip arthroplasty. Is returned to floor in satisfactory condition. Makes modest progress with physical therapy on the day of surgery. Dressing is checked on the first postoperative morning with some fresh drainage but not saturated. Leg lengths are equal. Distal neurovascular examination is intact. Physical Exam Vital Signs: Temp Pulse Resp BP Pulse Ox 36.4 C 65 19 123/41 L 99 04/22/19 00:00 04/22/19 00:00 04/22/19 00:00 04/22/19 00:00 04/22/19 00:00 Intake & Output 04/21/19 04/22/19 04/23/19 06:59 06:59 06:59 Intake Total 0 5481 Output Total 950 Balance 0 4531 Weight 77.6 kg General appearance: PRESENT: no acute distress Head exam: PRESENT: normocephalic Respiratory exam: PRESENT: unlabored Cardiovascular exam: PRESENT: RRR Vascular exam: PRESENT: normal capillary refill Musculoskeletal exam: PRESENT: other - Leg lengths equal. Distal neurovascular examination is intact. Neurological exam: PRESENT: alert, awake, oriented to person, oriented to place, oriented to time, oriented to situation. ABSENT: motor sensory deficit Psychiatric exam: PRESENT: appropriate affect, normal mood. ABSENT: homicidal ideation, suicidal ideation Skin exam: PRESENT: dry, intact, warm. ABSENT: cyanosis, rash Results Laboratory Results: WBC 11.1 10^3/uL (4.0-10.5) H 04/22/19 05:28 RBC 3.51 10^6/uL (4.35-5.55) L 04/22/19 05:28 Hgb 10.3 g/dL (13.5-17.0) L 04/22/19 05:28 Hct 30.6 % (37.9-51.0) L 04/22/19 05:28 MCV 87 fl (80-97) 04/22/19 05:28 MCH 29.4 pg (27.0-33.4) 04/22/19 05:28 MCHC 33.6 g/dL (32.0-36.0) 04/22/19 05:28 RDW 18.1 % (11.5-14.0) H 04/22/19 05:28 Plt Count 264 10^3/uL (150-450) 04/22/19 05:28 Sodium 135.9 mmol/L (137-145) L 04/22/19 05:28 Potassium 4.7 mmol/L (3.6-5.0) 04/22/19 05:28 Chloride 102 mmol/L (98-107) 04/22/19 05:28 Carbon Dioxide 28 mmol/L (22-30) 04/22/19 05:28 Anion Gap 6 (5-19) 04/22/19 05:28 BUN 24 mg/dL (7-20) H 04/22/19 05:28 Creatinine 1.20 mg/dL (0.52-1.25) 04/22/19 05:28 Est GFR ( Amer) > 60 (>60) 04/22/19 05:28 Est GFR (MDRD) Non-Af 59 (>60) L 04/22/19 05:28 Glucose 154 mg/dL (75-110) H 04/22/19 05:28 Calcium 8.8 mg/dL (8.4-10.2) 04/22/19 05:28 Urine Color Cancelled 03/28/19 09:44 Urine Appearance Cancelled 03/28/19 09:44 Urine pH Cancelled 03/28/19 09:44 Ur Specific [place] Cancelled 03/28/19 09:44 Urine Protein Cancelled 03/28/19 09:44 Urine Glucose (UA) Cancelled 03/28/19 09:44 Urine Ketones Cancelled 03/28/19 09:44 Urine Blood Cancelled 03/28/19 09:44 Urine Nitrite Cancelled 03/28/19 09:44 Urine Bilirubin Cancelled 03/28/19 09:44 Urine Urobilinogen Cancelled 03/28/19 09:44 Ur Leukocyte Esterase Cancelled 03/28/19 09:44 Urine WBC (Auto) Cancelled 03/28/19 09:44 Urine RBC (Auto) Cancelled 03/28/19 09:44 U Hyaline Cast (Auto) Cancelled 03/28/19 09:44 Urine Bacteria (Auto) Cancelled 03/28/19 09:44 Urine Red Cell Clumps Cancelled 03/28/19 09:44 Urine WBC Clumps Cancelled 03/28/19 09:44 Squamous Epi Cells Auto Cancelled 03/28/19 09:44 U Non-Squamous Epis Auto Cancelled 03/28/19 09:44 Calcium Carbonate Cryst Cancelled 03/28/19 09:44 Calcium Phosphate Cryst Cancelled 03/28/19 09:44 Calcium Oxalate Cr Auto Cancelled 03/28/19 09:44 Leucine Crystals Cancelled 03/28/19 09:44 Cystine Crystals Cancelled 03/28/19 09:44 Uric Acid Cryst (Auto) Cancelled 03/28/19 09:44 Triple Phos Cryst (Auto) Cancelled 03/28/19 09:44 Tyrosine Crystals Cancelled 03/28/19 09:44 Amorphous Sediment Auto Cancelled 03/28/19 09:44 Cellular Casts Cancelled 03/28/19 09:44 Epithelial Casts (Auto) Cancelled 03/28/19 09:44 Fatty Casts Cancelled 03/28/19 09:44 Granular Casts (Auto) Cancelled 03/28/19 09:44 Waxy Casts (Auto) Cancelled 03/28/19 09:44 Broad Casts Cancelled 03/28/19 09:44 RBC Casts (Auto) Cancelled 03/28/19 09:44 WBC Casts (Auto) Cancelled 03/28/19 09:44 Urine Mucus (Auto) Cancelled 03/28/19 09:44 U Trichomonas (Auto) Cancelled 03/28/19 09:44 Ur Yeast w Hyphae Cancelled 03/28/19 09:44 Urine Yeast (Budding) Cancelled 03/28/19 09:44 Urine Ascorbic Acid Cancelled 03/28/19 09:44 Blood Type O NEGATIVE 04/21/19 06:07 Antibody Screen NEGATIVE 04/21/19 06:07 Impressions: Pelvis X-Ray 04/21/19 08:26 IMPRESSION: SATISFACTORY POSTOPERATIVE PELVIS. Plan Plan of Treatment: Patient be discharged home on a weightbearing as tolerated basis with home health services and DME. Follow-up with Dr. Percy Johns [place] for surgery in 2 weeks for wound check. Time Spent: Less than 30 Minutes Stroke Is this a Stroke Patient?: No Stroke Pt being discharged on Anti-thrombolytic therapy?: Yes Acute Heart Failure - Is this a Heart Failure Patient?: No
[2019-04-22] MEDS: SENNOSIDES/DOCUSATE 8.6-50 MG 1 EACH TABLET PO SCH (09:41)
[2019-04-22] MEDS: ASPIRIN 81 MG TABLET, CHEWABLE PO SCH (09:41)
[2019-04-22] MEDS: CHOLECALCIFEROL (D3) 1,000 UNIT (25 MCG) TABLET PO SCH (09:41)
[2019-04-22] MEDS: OXYCODONE HCL SR 10 MG TABLET PO SCH (09:41)
[2019-04-22] MEDS: FLUTICASONE NASAL SPRAY 50 MCG/SPRY 120 SPRAY/16 GM NASL SCH (09:41)
[2019-04-22] MEDS: CYANOCOBALAMIN (VITAMIN B-12) 1,000 MCG TABLET PO SCH (09:41)
[2019-04-22] MEDS: EZETIMIBE 10 MG TABLET PO SCH (09:42)
[2019-04-22] MEDS: ALLOPURINOL 300 MG TABLET PO SCH (09:42)
[2019-04-22] MEDS: CITALOPRAM HYDROBROMIDE 20 MG TABLET PO SCH (09:42)
[2019-04-22] MEDS: PRENATAL VITAMIN W DHA CAPSULE PO SCH (09:42)
[2019-04-22 11:17] VITALS: BP 123/41
== END 2019-04-22 11:38 | disposition home health service (06) | DRG 470 ==
LOC: INOR 05:25 → 4N 09:44
PROVIDERS: ADMIT Orthopaedic Surgery; ATTEND Orthopaedic Surgery
PROC: 0SRB02A Replacement of Left Hip Joint with Metal on Polyethylene Synthetic Substitute, Uncemented, Open Approach (ICD-10-PCS; principal; 2019-04-21 07:30)
DX: M16.12 Unilateral primary osteoarthritis, left hip (principal); E78.00 Pure hypercholesterolemia, unspecified; G30.9 Alzheimer's disease, unspecified; F02.80 Dementia in other diseases classified elsewhere, unspecified severity, without behavioral disturbance, psychotic disturbance, mood disturbance, and anxiety; F41.9 Anxiety disorder, unspecified; F32.9 Major depressive disorder, single episode, unspecified; I10 Essential (primary) hypertension; E11.40 Type 2 diabetes mellitus with diabetic neuropathy, unspecified; Z96.641 Presence of right artificial hip joint; Z79.899 Other long term (current) drug therapy; Z79.890 Hormone replacement therapy; Z88.1 Allergy status to other antibiotic agents; Z88.0 Allergy status to penicillin; Z88.8 Allergy status to other drugs, medicaments and biological substances; Z87.891 Personal history of nicotine dependence
CPT/HCPCS: 01214; 36415; 72170; 80048; 82947; 84132; 85027; 86850; 86900; 86901; 88304; 88311; 94799; C1776; J1100; J1741; J2250; J2270; J2405; J2704; J3010; J3370; J3490; J7050; J7060

== ENCOUNTER → 2019-05-26 | Outpatient (CLI) | payer MEDICARE, OTHER ==
[2019-05-26 10:32] LABS: ALBUMIN 3.9 g/dL (3.5-5.0); ALKALINE PHOSPHATASE 151 U/L (38-126); ASPARTATE AMINO TRANSFERASE 19 U/L (17-59); BILIRUBIN,DIRECT 0.1 mg/dL (0.0-0.4); BILIRUBIN,TOTAL 0.5 mg/dL (0.2-1.3); TOTAL PROTEIN 6.6 g/dL (6.3-8.2)
[2019-05-27 08:07] LABS: CHOLESTEROL 161.86 mg/dL (0-200); TRIGLYCERIDES 95 mg/dL (<150)
[2019-05-27 08:18] LABS: DIRECT LDL 114 mg/dL (<100)
== END ==
LOC: OD 08:55
PROVIDERS: ATTEND Internal Medicine Cardiovascular Disease
DX: E78.00 Pure hypercholesterolemia, unspecified (principal); Z79.899 Other long term (current) drug therapy
CPT/HCPCS: 36415; 80061; 80076

== ENCOUNTER → 2019-08-02 | Outpatient (CLI) | payer MEDICARE, OTHER ==
[2019-08-02 11:19] LABS: ALKALINE PHOSPHATASE 96 U/L (38-126); ASPARTATE AMINO TRANSFERASE 39 U/L (17-59); BILIRUBIN,DIRECT 0.2 mg/dL (0.0-0.4); BILIRUBIN,TOTAL 0.6 mg/dL (0.2-1.3); CHOLESTEROL 156.42 mg/dL (0-200); TOTAL PROTEIN 6.8 g/dL (6.3-8.2); TRIGLYCERIDES 101 mg/dL (<150)
[2019-08-02 11:31] LABS: DIRECT LDL 101 mg/dL (<100)
== END ==
LOC: OD 09:55
PROVIDERS: ATTEND Physician Assistant
DX: E78.00 Pure hypercholesterolemia, unspecified (principal); R94.5 Abnormal results of liver function studies; Z79.899 Other long term (current) drug therapy
CPT/HCPCS: 36415; 80061; 80076

== ENCOUNTER → 2019-10-01 | Outpatient (CLI) | payer MEDICARE, OTHER ==
[2019-10-01 08:54] LABS: ALBUMIN 4.3 g/dL (3.5-5.0); ALKALINE PHOSPHATASE 98 U/L (38-126); ASPARTATE AMINO TRANSFERASE 31 U/L (17-59); BILIRUBIN,DIRECT 0.2 mg/dL (0.0-0.4); BILIRUBIN,TOTAL 0.7 mg/dL (0.2-1.3); CHOLESTEROL 146.13 mg/dL (0-200); CREATINE KINASE 80 U/L (55-170); TOTAL PROTEIN 7.2 g/dL (6.3-8.2); TRIGLYCERIDES 102 mg/dL (<150)
[2019-10-01 09:05] LABS: DIRECT LDL 91 mg/dL (<100)
== END ==
LOC: OD 07:47
PROVIDERS: ATTEND Internal Medicine Cardiovascular Disease
DX: E78.00 Pure hypercholesterolemia, unspecified (principal); Z79.899 Other long term (current) drug therapy
CPT/HCPCS: 36415; 80061; 80076; 82550

== ENCOUNTER → 2020-04-01 | Outpatient (CLI) | payer MEDICARE, OTHER ==
[2020-04-01 11:31] LABS: ALBUMIN 4.2 g/dL (3.5-5.0); ALKALINE PHOSPHATASE 86 U/L (38-126); ANION GAP 9 (5-19); ASPARTATE AMINO TRANSFERASE 26 U/L (17-59); BILIRUBIN,DIRECT 0.3 mg/dL (0.0-0.4); BILIRUBIN,TOTAL 0.9 mg/dL (0.2-1.3); BLOOD UREA NITROGEN 23 mg/dL (7-20); CALCIUM 9.1 mg/dL (8.4-10.2); CARBON DIOXIDE 27 mmol/L (22-30); CHLORIDE 104 mmol/L (98-107); GLUCOSE 90 mg/dL (75-110); TOTAL PROTEIN 6.7 g/dL (6.3-8.2); TRIGLYCERIDES 85 mg/dL (<150)
[2020-04-01 11:42] LABS: DIRECT LDL 140 mg/dL (<100)
== END ==
LOC: OD 10:01
PROVIDERS: ATTEND Internal Medicine Cardiovascular Disease
DX: E78.00 Pure hypercholesterolemia, unspecified (principal); I10 Essential (primary) hypertension; E11.9 Type 2 diabetes mellitus without complications; Z79.899 Other long term (current) drug therapy
CPT/HCPCS: 36415; 80048; 80061; 80076; 83036

== ENCOUNTER → 2020-05-14 | Outpatient (CLI) | payer MEDICARE, OTHER ==
--- NOTE | 2020-05-14 15:42 | ER RDC ASSESSMENT REPORT ---
Intake - In the Last 14 days Have you traveled outside [place]?: No Have you been in close contact with someone CONFIRMED: Yes Worked in Healthcare?: No - Symptoms Subjective Fever([place] feverish): No Chills: Yes Muscule Aches: Yes Runny Nose: Yes Sore Throat: Yes Cough (New or worsening chronic cough): Yes Shortness of breath: No Nausea or Vomiting: No Headache: No Abdominal Pain: No Diarrhea(3 or more loose stools in last 24 hours): No - Do you have any of the following Chronic lung disease: Asthma or emphysema or COPD: Yes Chronic Lung Disease Comment: History of COPD Cystic Fibrosis: No Diabetes: Yes Diabetes Comment: Type two DM High Blood Pressure: Yes Cardiovascular Disease: Yes Chronic Kidney Disease: No Chronic Liver Disease: No Chronic blood disorder like Sickle Cell Disease: No Weak immune system due to disease or medication: No Neurologic condition that limits movement: No Developmental delay - Moderate to Severe: No Recent (within past 2 weeks) or current : No Morbid Obesity (>100 pounds over ideal weight): No Obesity Comment: Height 5 feet 10 inches weight 190 pounds - Objective Temperature: 98.5 F Pulse Rate: 78 Respiratory Rate: 18 Blood Pressure: 138/77 O2 Sat by Pulse Oximetry: 97 Objective: Given above, testing performed: If Testing Performed: Test Specimen Type Sent to General - General Information source: Patient Notes: Patient here at [facility] for Covid testing patient was in contact with PCP Dr. Morales with sudden onset symptoms last night worsening today chills muscle aches runny nose sore throat and cough patient does have a history of COPD. Patient denies any known positive exposure to Covid that he is aware of. Patient's PCP recommended patient be tested for Covid. - Related Data Allergies/Adverse Reactions: amoxicillin [Amoxicillin] Allergy (Severe, Verified 04/21/19 06:11) Anaphylaxis erythromycin base [Erythromycin Base] Allergy (Severe, Verified 04/21/19 06:11) Hives Penicillins Allergy (Severe, Verified 04/21/19 06:11) Hives,anaphylaxis lisinopril [Lisinopril] Adverse Reaction (Severe, Verified 04/21/19 06:11) Angioneurotic Edema nystatin [From Mycolog II] Adverse Reaction (Mild, Verified 04/21/19 06:11) Generalized rash triamcinolone acetonide [From Mycolog II] Adverse Reaction (Mild, Verified 04/21/19 06:11) Generalized rash Past Medical History - General Information source: Patient - Social History Smoking Status: Former Smoker - quit in 1982 Family History: Reviewed & Not Pertinent - Past Medical History Cardiac Medical History: Reports: Hx Hypercholesterolemia, Hx Hypertension - losartan, Hx Peripheral Vascular Disease Denies: Hx Atrial Fibrillation, Hx Congestive Heart Failure, Hx Coronary Artery Disease, Hx Heart Attack, Hx Pulmonary Embolism, Hx Heart Murmur Pulmonary Medical History: Reports: Hx Bronchitis, Hx COPD - inhalers,neb, Hx Pneumonia - hx of, Hx Sleep Apnea - CPAP at night Denies: Hx Asthma, Hx Respiratory Failure, Hx Tuberculosis Neurological Medical History: Denies: Hx Cerebrovascular Accident, Hx Seizures, Hx Parkinson's Disease Endocrine Medical History: Reports: Hx Diabetes Mellitus Type 2. Denies: Hx Graves' Disease, Hx Hyperthyroidism, Hx Hypothyroidism Renal/ Medical History: Reports: Hx Benign Prostatic Hyperplasia - prostatectomy 2006. Denies: Hx End Stage Renal Disease, Hx Kidney Stones, Hx Peritoneal Dialysis Malignancy Medical History: Denies Hx Leukemia, Denies Hx Lung Cancer GI Medical History: Denies: Hx Hepatitis Musculoskeletal Medical History: Reports Hx Arthritis - generalized, Denies Hx Fibromyalgia, Denies Hx Multiple Sclerosis, Denies Hx Muscular Dystrophy, Denies Hx Systemic Lupus Erythematosus Psychiatric Medical History: Reports: Hx Depression, Hx Post Traumatic Stress Disorder Denies: Hx Bipolar Disorder, Hx Dementia, Hx Schizophrenia Traumatic Medical History: Denies: Hx Fractures Infectious Medical History: Denies: Hx Hepatitis, Hx HIV Past Surgical History: Reports: Hx Orthopedic Surgery - right hip replacement, right knee scope, Hx Tonsillectomy. Denies: Hx Appendectomy, Hx Bowel Surgery, Hx Cholecystectomy, Hx Coronary Artery Bypass Graft, Hx Gastric Bypass Surgery, Hx Herniorrhaphy, Hx Open Heart Surgery, Hx Pacemaker Physical Exam - General General appearance: Appears well, Alert In distress: None Notes: PHYSICAL EXAMINATION: GENERAL: Well-appearing and in no acute distress. HEAD: Atraumatic, normocephalic. EYES: sclera anicteric, conjunctiva are normal. ENT: nares patent. Moist mucous membranes. NECK: Normal range of motion, supple without lymphadenopathy LUNGS: CTAB and equal. No wheezes rales or rhonchi. Respirations even and unlabored lung sounds clear. Occasional moist non productive cough noted. HEART: Regular rate and rhythm without murmurs ABDOMEN: Soft, nontender, normal bowel sounds, no guarding. EXTREMITIES: Normal range of motion, no pitting edema. No cyanosis. NEUROLOGICAL: Cranial nerves grossly intact. Normal speech. Normal gait. PSYCH: Normal mood, normal affect. SKIN: Warm, Dry, normal turgor, no rashes or lesions noted Diagnostic Results Laboratory Results: Pending strep culture pending Covid testing results. Patient provided instructions regarding Covid to include: As a person under investigation for Covid 19, the [facility], division of public health advises you to adhere to the following guidance until your test results are reported to you. If your test result is positive, you will receive additional information from your provider and your local health department at that time. Remain at home until you are cleared by the health provider or public health authorities. Keep a log of visitors to your home, notify any visitors to your home of your isolation status. If you plan to move to a new address or leave the [facility], notify the local health department in your County. Call your doctor or seek care if you have an urgent medical need. Before seeking medical care, call ahead to get instructions from the provider before arriving at the medical office clinic or hospital. Notify them that you are being tested for the virus that causes Covid 19 so that arrangements can be made, as necessary, to prevent transmission to others in the healthcare setting. Next, notify the local health department in your [facility]. If a medical emergency arises and you need to call 911, inform the first responders that you are being tested for the virus that causes Covid 19. Next, notify the local health department in your [facility]. Patient Education/Counseling Counseling/Education: Patient presents with upper respiratory symptoms worrisome for possible Covid 19. Patient does not have emergency worring symptoms such as difficulty breathing, shortness of breath, chest pain, pressure, confusion or cyanosis. Patient appears suitable for discharge. Instructed to follow-up with PCP Dr. Lev Morales. To ED for persistent or worsening symptoms. Patient's vital signs are stable and patient is nontoxic in appearance. Good return precautions have been discussed with patient, patient verbalized understanding and is agreeable with discharge plan of care at this time. RDC Discharge - Discharge Clinical Impression: Flu-like symptoms, Encounter for screening laboratory testing for COVID-19 virus Upper respiratory infection Qualifiers: URI type: unspecified URI Qualified Code(s): J06.9 - Acute upper respiratory infection, unspecified Condition: Stable Disposition: Home; Selfcare
[2020-05-14 15:47] VITALS: BP 138/77
[2020-05-15 09:47] LABS: A TYPE INFLUENZA AG NEGATIVE (NEGATIVE); B INFLUENZA AG NEGATIVE (NEGATIVE)
== END ==
LOC: RDC 15:04
PROVIDERS: ATTEND Nurse Practitioner Family
DX: J06.9 Acute upper respiratory infection, unspecified (principal); Z20.828 Contact with and (suspected) exposure to other viral communicable diseases; J44.9 Chronic obstructive pulmonary disease, unspecified; E11.9 Type 2 diabetes mellitus without complications; I10 Essential (primary) hypertension; I73.9 Peripheral vascular disease, unspecified; M13.88 Other specified arthritis, other site; R68.83 Chills (without fever); M79.18 Myalgia, other site; R09.89 Other specified symptoms and signs involving the circulatory and respiratory systems; J02.9 Acute pharyngitis, unspecified; R05 Cough; Z88.1 Allergy status to other antibiotic agents; Z88.0 Allergy status to penicillin; Z88.8 Allergy status to other drugs, medicaments and biological substances; E78.00 Pure hypercholesterolemia, unspecified; Z96.641 Presence of right artificial hip joint
CPT/HCPCS: 87070; 87880; 87804; 99201; U0003; G0463; C9803; 87635; 99211